=== PATIENT | male | born 1955 | race Caucasian/White ===

== ENCOUNTER 2019-07-01 06:00 | Outpatient (RCR) | payer OTHER, SELFPAY | END 2019-07-31 00:01 | LOC: PULRHB 06:00 | PROVIDERS: Family Provider Internal Medicine; Visit Provider Internal Medicine | DX: J44.9 Chronic obstructive pulmonary disease, unspecified (principal) | CPT/HCPCS: G0424 ×7 ==

== ENCOUNTER 2019-08-01 06:00 | Outpatient (RCR) | payer OTHER, SELFPAY | END 2019-08-31 23:59 | disposition home or self-care (01) | LOC: PULRHB 06:00 | PROVIDERS: Family Provider Internal Medicine; PCP Internal Medicine; Visit Provider Internal Medicine | DX: J44.9 Chronic obstructive pulmonary disease, unspecified (principal) | CPT/HCPCS: G0424 ==

== ENCOUNTER 2019-09-04 12:40 | Outpatient (RCR) | payer OTHER, SELFPAY | END 2019-09-29 23:59 | disposition home or self-care (01) | LOC: PULRHB 12:40 | PROVIDERS: Family Provider Internal Medicine; PCP Internal Medicine; Visit Provider Internal Medicine | DX: J44.9 Chronic obstructive pulmonary disease, unspecified (principal) | CPT/HCPCS: G0424 ==

== ENCOUNTER 2019-09-30 06:00 | Outpatient (RCR) | payer OTHER, SELFPAY | END 2019-10-30 23:59 | disposition home or self-care (01) | LOC: PULRHB 06:00 | PROVIDERS: Family Provider Internal Medicine; PCP Internal Medicine; Visit Provider Internal Medicine | DX: J44.9 Chronic obstructive pulmonary disease, unspecified (principal) | CPT/HCPCS: G0424 ==

== ENCOUNTER 2020-06-23 11:29 | Outpatient (CLI) | payer OTHER, SELFPAY ==
--- NOTE | 2020-06-23 11:43 | USCV_ITS ---
Merritt Lima Age: 64 Gender: M : 1955 Exam Date: 06/23/2020 11:56 Ordering Phys: Tova Ireland MD Technologist: Isabel Pride Exam Location: [facility] [place] Indication: Screening for AAA HISTORY: Diameter (cm) AP x Transverse x Length Velocity (cm/s) Waveform Prox Aorta: 2.11 x 2.72 x 56.90 Mid Aorta: 2.00 x 2.32 x 67.70 Distal Aorta: 1.49 x 1.92 x 32.70 Right Iliac Prox: 0.90 x 1.02 x 123.00 Left Iliac Prox: 1.02 x 0.99 x 79.30 Stent Prox Landing x x Aneurysmal Sac Max x x Lt Lat Sac Dim Rt Lat Sac Dim Stent Dist Landing x x Right Iliac Stent x x Left Iliac Stent x x Right Renal Art Left Renal Art FINDINGS: Comparison:. none Ectatic abdominal aorta with evidence of atherosclerotic plaque noted. No evidence of abdominal aortic aneurysm. There is no evidence of a right common iliac artery aneurysm. There is no evidence of a left common iliac artery aneurysm. CONCLUSIONS No evidence of abdominal aortic aneurysm. Mild atherosclerosis abdominal aorta. Dr. Thao Lima DO (Electronically Signed) Final Date: 23 June 2020 15:19 S
== END 2020-06-23 11:30 | disposition home or self-care (01) ==
PROVIDERS: PCP Family Medicine; Visit Provider Family Medicine
DX: I71.4 Abdominal aortic aneurysm, without rupture (principal); I70.0 Atherosclerosis of aorta
CPT/HCPCS: 76706

== ENCOUNTER 2021-04-04 15:13 | Emergency (ER) | payer OTHER, MEDICARE, SELFPAY ==
[2021-04-04 15:23] VITALS: PULSE 103; RESP 17; TEMP 36.6; O2SAT 95; BMI 27.3
[2021-04-04 15:52] VITALS: PULSE 100; RESP 17; O2SAT 95
--- NOTE | 2021-04-04 15:52 | XRR_ITS ---
PROCEDURE INFORMATION: Exam: XR Chest Exam date and time: 04/04/2021 3:52 PM Age: 65 years old Clinical indication: Pain; Chest pressure; Additional info: Chest pain TECHNIQUE: Imaging protocol: XR of the chest. Views: 1 view. COMPARISON: CR Chest 1 [place] [id number] 03/14/2019 7:14 AM FINDINGS: Lungs: There are minimal patchy opacities at the left lung base. Pleural spaces: Unremarkable. No pleural effusion. No pneumothorax. Heart/Mediastinum: Unremarkable. No cardiomegaly. Bones/joints: Unremarkable. XR/XR chest 1V portable [id number] IMPRESSION: Minimal patchy opacities at the left lung base are nonspecific. Differential includes atelectasis, scar tissue, and or pneumonia.
--- NOTE | 2021-04-04 15:52 | ECG_ITS ---
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1955 Requested By: Jayro Woo Order Number: [id number] Reading MD: CAMILLE LOUIS Measurements Intervals [place] Rate: 95 P: NM: QRS: -61 QRSD: 94 T: 50 QT: 358 QTc: 451 Interpretive Statements ATRIAL FIBRILLATION INCOMPLETE RIGHT BUNDLE BRANCH BLOCK [90+ ms QRS DURATION, TERMINAL R IN V1/V2, 40+ ms S IN I/aVL/V4/V5/V6] LEFT ANTERIOR FASCICULAR BLOCK [QRS AXIS <= -45, QR IN I, RS IN II] SEPTAL MYOCARDIAL INFARCTION , OF INDETERMINATE AGE [40+ ms Q WAVE IN V1/V2] Compared to ECG 03/14/2019 13:38:53 Incomplete right bundle-branch block now present Myocardial infarct finding still present Electronically Signed On 04-04-2021 20:13:41 CDT by CAMILLE LOUIS [id number]
--- NOTE | 2021-04-04 15:59 | XRR_ITS ---
PROCEDURE INFORMATION: Exam: XR Right Hand Exam date and time: 04/04/2021 3:59 PM Age: 65 years old Clinical indication: Injury or trauma; Other: Dog bite; Puncture; Hand; Right; Additional info: Pain TECHNIQUE: Imaging protocol: XR Right hand. Views: 3 or more views. COMPARISON: No relevant prior studies available. FINDINGS: Bones/joints: There is a fracture of unknown chronicity through the neck of the 5th metacarpal. There is some hazy opacity across the fracture site is may be subacute to chronic in nature. Multi-articular primary osteoarthritic changes including joint space narrowing, subchondral cystic/sclerotic changes, and marginal osteophyte formations. 1 mm hyperdensity overlies the dorsal aspect of the 5th digit distal phalanx. Soft tissues: Normal. XR/XR hand RT min 3V* [id number] IMPRESSION: There is a fracture of unknown chronicity through the neck of the 5th metacarpal. There is some hazy opacity across the fracture site is may be subacute to chronic in nature. Please correlate clinically.
--- NOTE | 2021-04-04 15:59 | XRR_ITS ---
PROCEDURE INFORMATION: Exam: XR Left Hand Exam date and time: 04/04/2021 3:59 PM Age: 65 years old Clinical indication: Injury or trauma; Other: Dog bite; Puncture; Hand; Left; Additional info: Pain dog bite TECHNIQUE: Imaging protocol: XR Left hand. Views: 3 or more views. COMPARISON: No relevant prior studies available. FINDINGS: Bones/joints: Multi-articular primary osteoarthritic changes including joint space narrowing, subchondral cystic/sclerotic changes, and small marginal osteophyte formations. These changes appear most prominent across the 5th distal interphalangeal joint. Soft tissues: There is edema in the soft tissues surrounding the 5th digit. XR/XR hand LT min 3V* [id number] IMPRESSION: There is edema in the soft tissues surrounding the 5th digit.
--- NOTE | 2021-04-04 16:20 | ED_ITS ---
Documented by User: Jayro Alvarado DO 04/11/21 08:59 HPI - Animal Bite General: Chief Complaint: Animal Bite Stated Complaint: lacerations/dog fight Time Seen by Provider: 04/04/21 15:49 History of Present Illness: HPI narrative: 65-year-old male presents to the emergency room after getting in the middle of a dog fight. He is on Eliquis. He got bit on the left fifth finger he has a scratch abrasions bilaterally on the knees and the left anterior tibia. He also has hematoma on the lateral portion of the right hand. Patient is on Eliquis for atrial fibrillation denies any other injuries. He is complaining of generalized aching all over is quite anxious. MD complaint: animal bite Onset (ago): minute(s) Animal: dog Description of animal: household pet Mechanism: bite Location - Extremities: Left: lower leg and Bilateral: hand Pain description: sharp Context: animals fighting Associated symptoms: Reports bleeding; Deny chills, cough, diaphoresis, erythema, fever(s), headache(s), numbness, rash, short of breath, syncope, weakness or wound drainage Review of Systems Const: Denies: fever(s), chills or diaphoresis ENMT: Denies: throat pain, ear or mastoid pain, nasal discharge or nasal congestion Card: Denies: syncope Resp: Denies: dyspnea, productive cough or non-productive cough GI: Denies: abdominal pain, nausea, vomiting, hematemesis, coffee ground emesis, diarrhea, constipation, bloating, hematochezia or melena : Denies: flank pain, dysuria, urinary frequency or urinary urgency Skin/Breast: Denies: rash or pruritus Neuro: Denies: headache(s) PFS ED PFSH: Medical History (Updated 04/04/21 @ 19:21 by Chava Knowles DO) Alcohol abuse Atrial fibrillation Diabetes Hyperlipidemia Hypertension Major depression PTSD (post-traumatic stress disorder) SOB (shortness of breath) Tobacco abuse Surgical History H/O neck surgery Family History Father Cancer Lung disease TB Suicide Mother Dementia Lung disease TB Family/Other Diabetes Grandmother Stroke Denies family history of CAD (coronary artery disease) Clotting disorder Chronic kidney disease (CKD) Anesthesia complication Bleeding disorder Social History Smoking and tobacco status: current every day smoker Alcohol intake: current Physical Exam Const: COMMON NORMALS: no acute distress GENERAL APPEARANCE: cooperative and comfortable ORIENTATION/CONSCIOUSNESS: Yes awake, Yes oriented to person, Yes oriented to place and Yes oriented to time HENMT: COMMON NORMALS: normocephalic, atraumatic and hearing grossly normal bilaterally HEAD & SCALP: normocephalic and atraumatic Neck/C-Spine: COMMON NORMALS: no JVD Resp: COMMON NORMALS: normal respiratory effort, No retractions, No use of accessory muscles and clear to auscultation bilaterally AUSCULTATION: clear to auscultation bilaterally Cardio: COMMON NORMALS: no JVD, regular rate, regular rhythm and No murmurs present (Cardio) RATE: regular rate RHYTHM: regular rhythm GI: COMMON NORMALS: Soft to palpation and No hepatosplenomegaly present AUSCULTATION: Yes normoactive bowel sounds PALPATION: Yes Soft to palpation, No Tenderness to palpation present (GI), No Guarding due to palpation present (GI) and Yes No hepatosplenomegaly present Extremity: NARRATIVE EXTREMITY EXAM: Skin tear in the left anterior tibia bilateral abrasions on the knees hematoma in the lateral aspect of the right hand laceration to the left fifth finger. Neuro: SENSORIUM/ORIENTATION: Yes oriented to person, Yes oriented to place and Yes oriented to time Skin: COMMON NORMALS: no rashes or lesions noted GENERAL SKIN EXAM: no rashes or lesions noted and no erythema Course Vital Signs: Vital signs: Vital Signs Temperature 98.2 F 04/04/21 20:45 Pulse Rate 78 04/04/21 20:45 Respiratory Rate 20 H 04/04/21 20:45 Blood Pressure 161/91 04/04/21 20:45 Pulse Oximetry 95 04/04/21 15:52 MDM - Animal Bite MDM Narrative: Medical decision making narrative: Care turned over to Dr. Knowles at change of shift please see his notes for final diagnosis and disposition. Lab Data: Labs: Lab Results 04/04/21 04/04/21 04/04/21 Range/Units 16:22 16:22 16:22 WBC 5.5 (4.0-10.0) 10^3/ uL RBC 4.56 (4.1-5.3) 10^6/u L Hgb 14.4 (11.7-16.6) g/dL Hct 42.0 (42.0-52.0) % MCV 92.1 (80-94) fl MCH 31.6 (28.0-34.0) pg MCHC 34.3 (30.0-36.0) g/dL RDW 12.5 (12.1-15.1) % Plt Count 212 (130-400) 10^3/c mm MPV 10.7 H (7.4-10.4) fL Neut % (Auto) 58.6 % Lymph % (Auto) 25.5 % [place] % (Auto) 12.7 % Eos % (Auto) 1.6 % Baso % (Auto) 1.4 % Neut # (Auto) 3.23 (1.8-7.7) 10^3/u L Lymph # (Auto) 1.4 (0.8-4.8) 10^3/u L [place] # (Auto) 0.7 (0.2-0.9) 10^3/u L Eos # (Auto) 0.1 (0.0-0.8) 10^3/u L Baso # (Auto) 0.1 (0.0-0.1) 10^3/u L Nucleated RBC % (a uto) 0 % Nucleated RBCs # 0.0 /100WBC Sodium 136 (136-145) mmol/L Potassium 3.8 (3.5-5.1) mmol/L Chloride 95 L (98-107) mmol/L Carbon Dioxide 18 L (22-29) mmol/L Anion Gap 26.8 H (5-19) BUN 7 L (8-23) mg/dL Creatinine 0.8 (0.7-1.2) mg/dL GFR Calculation 96.4 (90-130) mL/min Glucose 82 (65-115) mg/dL Calculated Osmolal ity 279 L (285-295) mOsm/k g Calcium 9.6 (8.5-10.5) mg/dL Total Bilirubin 0.3 (0.15-1.2) mg/dL AST 24 (0-40) U/L ALT 14 (0-41) U/L Alkaline Phosphata se 68 (40-130) IU/L Creatine Kinase 83 (39-308) U/L Troponin T Baselin e 10 (0-15) ng/L Troponin T 120 Min [place] (0-15) ng/L Delta Troponin T (0-10) ABS# Total Protein 7.2 (6.6-8.7) g/dL Albumin 4.7 (3.5-5.2) g/dL Globulin 2.5 (1.3-4.6) g/dL SARS-CoV-2 Ag (Rap id) (Negative) 04/04/21 04/04/21 Range/Units 18:32 18:34 WBC (4.0-10.0) 10^3/ uL RBC (4.1-5.3) 10^6/u L Hgb (11.7-16.6) g/dL Hct (42.0-52.0) % MCV (80-94) fl MCH (28.0-34.0) pg MCHC (30.0-36.0) g/dL RDW (12.1-15.1) % Plt Count (130-400) 10^3/c mm MPV (7.4-10.4) fL Neut % (Auto) % Lymph % (Auto) % [place] % (Auto) % Eos % (Auto) % Baso % (Auto) % Neut # (Auto) (1.8-7.7) 10^3/u L Lymph # (Auto) (0.8-4.8) 10^3/u L [place] # (Auto) (0.2-0.9) 10^3/u L Eos # (Auto) (0.0-0.8) 10^3/u L Baso # (Auto) (0.0-0.1) 10^3/u L Nucleated RBC % (a uto) % Nucleated RBCs # /100WBC Sodium (136-145) mmol/L Potassium (3.5-5.1) mmol/L Chloride (98-107) mmol/L Carbon Dioxide (22-29) mmol/L Anion Gap (5-19) BUN (8-23) mg/dL Creatinine (0.7-1.2) mg/dL GFR Calculation (90-130) mL/min Glucose (65-115) mg/dL Calculated Osmolal ity (285-295) mOsm/k g Calcium (8.5-10.5) mg/dL Total Bilirubin (0.15-1.2) mg/dL AST (0-40) U/L ALT (0-41) U/L Alkaline Phosphata se (40-130) IU/L Creatine Kinase (39-308) U/L Troponin T Baselin e (0-15) ng/L Troponin T 120 Min [place] 10.52 (0-15) ng/L Delta Troponin T 0.52 (0-10) ABS# Total Protein (6.6-8.7) g/dL Albumin (3.5-5.2) g/dL Globulin (1.3-4.6) g/dL SARS-CoV-2 Ag (Rap id) Negative (Negative) Discharge Plan Discharge Patient Disposition: Home Clinical Impression: Bite by animal Pneumonia Qualifiers: Pneumonia type: due to unspecified organism Laterality: left Lung location: lower lobe of lung Qualified Code(s): J18.9 - Pneumonia, unspecified organism Condition: Stable Prescriptions: New bacitracin 500 unit/gram ointment 1 applic topical BID Qty: 30 RF: 0 hydrocodone-acetaminophen 5-325 mg tablet 1 tab PO Q8H PRN (Reason: pain) Qty: 7 RF: 0 No Action Eliquis 5 mg tablet 5 mg PO BID RF: 0 thiamine HCl (vitamin B1) 100 mg tablet 100 mg PO DAILY RF: 0 pantoprazole 40 mg tablet,delayed release (DR/EC) 40 mg PO DAILY RF: 0 rosuvastatin 5 mg tablet 5 mg PO DAILY RF: 0 nitroglycerin [Nitrostat] 0.4 mg tablet, sublingual 0.4 mg SUBLINGUAL Q5M PRNRF: 0 metoprolol tartrate 50 mg tablet 50 mg PO BID RF: 0 cholecalciferol (vitamin D3) 10 mcg (400 unit) capsule 2,000 unit PO DAILY RF: 0 folic acid 1 mg tablet 1 mg PO BID RF: 0 All Day Allergy (cetirizine) 10 mg capsule 10 mg PO DAILY PRNRF: 0 Discharge Orders: Discharge ED (Routine); Ordered 04/04/21 Ordered By: Chava Knowles Referrals: Tova Ireland MD [Primary Care Provider] - 4-7 days (For wound checks, and pneumonia checkup) Discharge Diet: Advance as tolerated Discharge Activity: Increase activity as tolerated Patient Instructions: Animal Bite (ED), Pneumonia (ED), Opioid Safety Activity Restrictions/Additional Instructions: Return for worsening swelling, pain, redness, streaking, drainage from wounds. Return also for worsening chest discomfort despite treatment, shortness of breath, other concerning symptoms. Coding Level of Care Code ED Protection Engineer for Chg Fwd Exam Detailed Documented by User: Chava Knowles DO 04/05/21 01:06 HPI - Animal Bite General: Chief Complaint: Animal Bite Stated Complaint: lacerations/dog fight Time Seen by Provider: 04/04/21 15:49 PFSH ED PFSH: Medical History (Updated 04/04/21 @ 19:21 by Chava Knowles DO) Alcohol abuse Atrial fibrillation Diabetes Hyperlipidemia Hypertension Major depression PTSD (post-traumatic stress disorder) SOB (shortness of breath) Tobacco abuse Surgical History H/O neck surgery Family History Father Cancer Lung disease TB Suicide Mother Dementia Lung disease TB Family/Other Diabetes Grandmother Stroke Denies family history of CAD (coronary artery disease) Clotting disorder Chronic kidney disease (CKD) Anesthesia complication Bleeding disorder Social History Smoking and tobacco status: current every day smoker Alcohol intake: current Course Vital Signs: Vital signs: Vital Signs Temperature 98.2 F 04/04/21 20:45 Pulse Rate 78 04/04/21 20:45 Respiratory Rate 20 H 04/04/21 20:45 Blood Pressure 161/91 04/04/21 20:45 Pulse Oximetry 95 04/04/21 15:52 MDM - Animal Bite MDM Narrative: Medical decision making narrative: 65-year-old gentleman checked out to me at shift change by Dr. Alvarado. Staff has several scratches and abrasions related to the dog fight. These are known animals to the patient with updated shots. No rabies prophylaxis is warranted. He has received cefazolin, and a tetanus shot. Patient's also been coughing and having some chest discomfort. His EKG was not remarkable. Chest x-ray shows some infiltrate or atelectasis in the left base. His Covid rapid test is negative. He has no change in his delta troponin. He will be treated as an outpatient for pneumonia. We will cover him with doxycycline, as it would be good coverage for his bite wounds as well. Lab Data: Labs: Lab Results 04/04/21 04/04/21 04/04/21 Range/Units 16:22 16:22 16:22 WBC 5.5 (4.0-10.0) 10^3/ uL RBC 4.56 (4.1-5.3) 10^6/u L Hgb 14.4 (11.7-16.6) g/dL Hct 42.0 (42.0-52.0) % MCV 92.1 (80-94) fl MCH 31.6 (28.0-34.0) pg MCHC 34.3 (30.0-36.0) g/dL RDW 12.5 (12.1-15.1) % Plt Count 212 (130-400) 10^3/c mm MPV 10.7 H (7.4-10.4) fL Neut % (Auto) 58.6 % Lymph % (Auto) 25.5 % [place] % (Auto) 12.7 % Eos % (Auto) 1.6 % Baso % (Auto) 1.4 % Neut # (Auto) 3.23 (1.8-7.7) 10^3/u L Lymph # (Auto) 1.4 (0.8-4.8) 10^3/u L [place] # (Auto) 0.7 (0.2-0.9) 10^3/u L Eos # (Auto) 0.1 (0.0-0.8) 10^3/u L Baso # (Auto) 0.1 (0.0-0.1) 10^3/u L Nucleated RBC % (a uto) 0 % Nucleated RBCs # 0.0 /100WBC Sodium 136 (136-145) mmol/L Potassium 3.8 (3.5-5.1) mmol/L Chloride 95 L (98-107) mmol/L Carbon Dioxide 18 L (22-29) mmol/L Anion Gap 26.8 H (5-19) BUN 7 L (8-23) mg/dL Creatinine 0.8 (0.7-1.2) mg/dL GFR Calculation 96.4 (90-130) mL/min Glucose 82 (65-115) mg/dL Calculated Osmolal ity 279 L (285-295) mOsm/k g Calcium 9.6 (8.5-10.5) mg/dL Total Bilirubin 0.3 (0.15-1.2) mg/dL AST 24 (0-40) U/L ALT 14 (0-41) U/L Alkaline Phosphata se 68 (40-130) IU/L Creatine Kinase 83 (39-308) U/L Troponin T Baselin e 10 (0-15) ng/L Troponin T 120 Min [place] (0-15) ng/L Delta Troponin T (0-10) ABS# Total Protein 7.2 (6.6-8.7) g/dL Albumin 4.7 (3.5-5.2) g/dL Globulin 2.5 (1.3-4.6) g/dL SARS-CoV-2 Ag (Rap id) (Negative) 04/04/21 04/04/21 Range/Units 18:32 18:34 WBC (4.0-10.0) 10^3/ uL RBC (4.1-5.3) 10^6/u L Hgb (11.7-16.6) g/dL Hct (42.0-52.0) % MCV (80-94) fl MCH (28.0-34.0) pg MCHC (30.0-36.0) g/dL RDW (12.1-15.1) % Plt Count (130-400) 10^3/c mm MPV (7.4-10.4) fL Neut % (Auto) % Lymph % (Auto) % [place] % (Auto) % Eos % (Auto) % Baso % (Auto) % Neut # (Auto) (1.8-7.7) 10^3/u L Lymph # (Auto) (0.8-4.8) 10^3/u L [place] # (Auto) (0.2-0.9) 10^3/u L Eos # (Auto) (0.0-0.8) 10^3/u L Baso # (Auto) (0.0-0.1) 10^3/u L Nucleated RBC % (a uto) % Nucleated RBCs # /100WBC Sodium (136-145) mmol/L Potassium (3.5-5.1) mmol/L Chloride (98-107) mmol/L Carbon Dioxide (22-29) mmol/L Anion Gap (5-19) BUN (8-23) mg/dL Creatinine (0.7-1.2) mg/dL GFR Calculation (90-130) mL/min Glucose (65-115) mg/dL Calculated Osmolal ity (285-295) mOsm/k g Calcium (8.5-10.5) mg/dL Total Bilirubin (0.15-1.2) mg/dL AST (0-40) U/L ALT (0-41) U/L Alkaline Phosphata se (40-130) IU/L Creatine Kinase (39-308) U/L Troponin T Baselin e (0-15) ng/L Troponin T 120 Min [place] 10.52 (0-15) ng/L Delta Troponin T 0.52 (0-10) ABS# Total Protein (6.6-8.7) g/dL Albumin (3.5-5.2) g/dL Globulin (1.3-4.6) g/dL SARS-CoV-2 Ag (Rap id) Negative (Negative) Discharge Plan Discharge Patient Disposition: Home Clinical Impression: Bite by animal Pneumonia Qualifiers: Pneumonia type: due to unspecified organism Laterality: left Lung location: lower lobe of lung Qualified Code(s): J18.9 - Pneumonia, unspecified organism Condition: Stable Prescriptions: New bacitracin 500 unit/gram ointment 1 applic topical BID Qty: 30 RF: 0 hydrocodone-acetaminophen 5-325 mg tablet 1 tab PO Q8H PRN (Reason: pain) Qty: 7 RF: 0 No Action Eliquis 5 mg tablet 5 mg PO BID RF: 0 thiamine HCl (vitamin B1) 100 mg tablet 100 mg PO DAILY RF: 0 pantoprazole 40 mg tablet,delayed release (DR/EC) 40 mg PO DAILY RF: 0 rosuvastatin 5 mg tablet 5 mg PO DAILY RF: 0 nitroglycerin [Nitrostat] 0.4 mg tablet, sublingual 0.4 mg SUBLINGUAL Q5M PRNRF: 0 metoprolol tartrate 50 mg tablet 50 mg PO BID RF: 0 cholecalciferol (vitamin D3) 10 mcg (400 unit) capsule 2,000 unit PO DAILY RF: 0 folic acid 1 mg tablet 1 mg PO BID RF: 0 All Day Allergy (cetirizine) 10 mg capsule 10 mg PO DAILY PRNRF: 0 Discharge Orders: Discharge ED (Routine); Ordered 04/04/21 Ordered By: Chava Knowles Referrals: Tova Ireland MD [Primary Care Provider] - 4-7 days (For wound checks, and pneumonia checkup) Discharge Diet: Advance as tolerated Discharge Activity: Increase activity as tolerated Patient Instructions: Animal Bite (ED), Pneumonia (ED), Opioid Safety Activity Restrictions/Additional Instructions: Return for worsening swelling, pain, redness, streaking, drainage from wounds. Return also for worsening chest discomfort despite treatment, shortness of breath, other concerning symptoms. Coding Level of Care Code ED Protection Engineer for Ben Fwd Exam Detailed
[2021-04-04] MEDS: ceFAZolin 1,000 mg SDV 1000 MG IVP (16:45)
[2021-04-04] MEDS: tetanus-dipt-pertussis 0.5 mL SDV IM (16:45)
[2021-04-04] MEDS: water for injection-sterile 10 ML 5 ML (16:45)
[2021-04-04 16:47] LABS: Basophils # 0.1 10^3/uL (0.0-0.1); Basophils % 1.4 %; Eosinophils # 0.1 10^3/uL (0.0-0.8); Eosinophils % 1.6 %; Hemoglobin 14.4 g/dL (11.7-16.6); Lymphocytes # 1.4 10^3/uL (0.8-4.8); Lymphocytes % 25.5 %; Mean Corpuscular HGB Conc 34.3 g/dL (30.0-36.0); Mean Corpuscular Hemoglobin 31.6 pg (28.0-34.0); Mean Corpuscular Volume 92.1 fl (80-94); Mean Platelet Volume 10.7 fL (7.4-10.4); Monocytes # 0.7 10^3/uL (0.2-0.9); Monocytes % 12.7 %; Neutrophils # 3.23 10^3/uL (1.8-7.7); Neutrophils % 58.6 %; Nucleated Red Blood Cells % 0 %; Platelet Count 212 10^3/cmm (130-400); Red Blood Count 4.56 10^6/uL (4.1-5.3); Red Cell Distribution Width 12.5 % (12.1-15.1); White Blood Count 5.5 10^3/uL (4.0-10.0)
[2021-04-04 17:02] LABS: Troponin(5th) Baseline 10 ng/L (0-15)
[2021-04-04 17:05] LABS: Alanine Aminotransferase 14 U/L (0-41); Albumin Level 4.7 g/dL (3.5-5.2); Alkaline Phosphatase 68 IU/L (40-130); Anion Gap 26.8 (5-19); Aspartate Amino Transferase 24 U/L (0-40); Blood Urea Nitrogen 7 mg/dL (8-23); Calcium 9.6 mg/dL (8.5-10.5); Carbon Dioxide 18 mmol/L (22-29); Chloride 95 mmol/L (98-107); Creatine Phosphokinase 83 U/L (39-308); Globulin 2.5 g/dL (1.3-4.6); Glomerular Filtration Rate 96.4 mL/min (90-130); Glucose 82 mg/dL (65-115); Osmolality Calculated 279 mOsm/kg (285-295); Potassium 3.8 mmol/L (3.5-5.1); Sodium 136 mmol/L (136-145); Total Bilirubin 0.3 mg/dL (0.15-1.2); Total Protein 7.2 g/dL (6.6-8.7)
--- NOTE | 2021-04-04 17:52 | ECG_ITS ---
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1955 Requested By: Jayro Woo Order Number: [id number] Reading MD: CAMILLE LOUIS Measurements Intervals Protection Rate: 91 P: TN: QRS: -62 QRSD: 94 T: 48 QT: 338 QTc: 416 Interpretive Statements ATRIAL FIBRILLATION INCOMPLETE RIGHT BUNDLE BRANCH BLOCK [90+ ms QRS DURATION, TERMINAL R IN V1/V2, 40+ ms S IN I/aVL/V4/V5/V6] LEFT ANTERIOR FASCICULAR BLOCK [QRS AXIS <= -45, QR IN I, RS IN II] ANTERIOR MYOCARDIAL INFARCTION , OF INDETERMINATE AGE [40+ ms Q WAVE AND/OR ST/T ABNORMALITY IN V3/V4] Compared to ECG 04/04/2021 16:19:56 No significant changes Electronically Signed On 04-04-2021 20:17:10 CDT by CAMILLE LOUIS [id number]
[2021-04-04 18:57] LABS: Troponin 5 2HR 10.52 ng/L (0-15); Troponin 5 2HR Delta 0.52 ABS# (0-10)
[2021-04-04 19:10] LABS: SARS Covid-2 Antigen Negative (Negative)
[2021-04-04] MEDS: ondansetron 2 mg/ML SDV 2 mL 4 MG IVP (20:14)
[2021-04-04] MEDS: mupirocin oint 22 gm 1 APPLIC TOPICAL (20:15)
[2021-04-04] MEDS: fentaNYL 50 mcg/mL INJ 2mL 100 MCG IVP (20:15)
[2021-04-04] MEDS: sodium chloride 0.9% 1,000 ML 999 ML IV (20:15)
[2021-04-04 20:45] VITALS: BP 161/91; PULSE 78; RESP 20; TEMP 36.8
== END 2021-04-04 20:46 | disposition home or self-care (01) ==
PROVIDERS: Family Medicine; Emergency Provider Emergency Medicine; PCP Family Medicine
DX: J18.9 Pneumonia, unspecified organism (principal); S61.257A Open bite of left little finger without damage to nail, initial encounter; W54.0XXA Bitten by dog, initial encounter; Z79.01 Long term (current) use of anticoagulants; E11.9 Type 2 diabetes mellitus without complications; E78.5 Hyperlipidemia, unspecified; I10 Essential (primary) hypertension; F17.210 Nicotine dependence, cigarettes, uncomplicated; Z23 Encounter for immunization; Z20.822 Contact with and (suspected) exposure to COVID-19
CPT/HCPCS: 71045; 73130; 80053; 82550; 84484; 85025; 87426; 90715; 93005; 96361; 96374; 96375; 99284; J0690; J2405; J3010; J7030

== ENCOUNTER 2021-08-04 17:09 | Emergency (ER) | payer OTHER, MEDICARE, SELFPAY ==
[2021-08-04 17:17] VITALS: BP 129/65; PULSE 151; RESP 20; TEMP 36.8; O2SAT 100
--- NOTE | 2021-08-04 17:33 | W.ED.PSYCHS ---
Documented by User: Jayro Alvarado DO 08/08/21 08:01 HPI - Psych General: Chief Complaint: Psychiatric Symptoms Stated Complaint: METH, ETOH, SI Time Seen by Provider: 08/04/21 17:17 History of Present Illness: HPI Narrative: 65-year-old male presents emergency room via EMS with the attendance of the [place] [employer] officer. Patient is obviously obnoxiously intoxicated repeatedly stating he wants to kill himself. States his dad kill himself and he wants to kill himself as well. Relates it to his time in [place]. I cannot really get him to explain anything else that happened that resulted in him presenting to the emergency room. He did tell the nursing staff had been drinking heavily for the last several days he also has been using methamphetamines and marijuana. He mentions he has been admitted to the Neuropsych Unit in the past. MD complaint: suicidal ideation Onset (ago): unknown Duration: constant History of same: Yes Relieving factors: none Exacerbating factors: alcohol and drug use Context: recent alcohol abuse and recent drug abuse Associated psychiatric symptoms: depression and suicidal ideation Associated symptoms: Reports suicidal ideation; Deny auditory hallucinations, visual hallucinations, delusions, depression, homicidal ideation or racing thoughts Treatments prior to arrival: none If self harm: admits thoughts of self harm Review of Systems General: Reports: ROS unobtainable due to mental status Psych: Reports: suicidal ideation; Denies: depression, visual hallucinations, auditory hallucinations or homicidal ideation [facility] ED PFSH: Medical History Alcohol abuse Atrial fibrillation Diabetes Hyperlipidemia Hypertension Major depression PTSD (post-traumatic stress disorder) SOB (shortness of breath) Tobacco abuse Surgical History H/O neck surgery Family History Father Cancer Lung disease TB Suicide Mother Dementia Lung disease TB Family/Other Diabetes Grandmother Stroke Denies family history of CAD (coronary artery disease) Clotting disorder Chronic kidney disease (CKD) Anesthesia complication Bleeding disorder Social History Smoking and tobacco status: current every day smoker Alcohol intake: current Physical Exam Const: ORIENTATION/CONSCIOUSNESS: Yes awake HENMT: COMMON NORMALS: normocephalic, atraumatic and hearing grossly normal bilaterally HEAD & SCALP: normocephalic and atraumatic Neck/C-Spine: COMMON NORMALS: no JVD Resp: COMMON NORMALS: normal respiratory effort, No retractions, No use of accessory muscles and clear to auscultation bilaterally AUSCULTATION: clear to auscultation bilaterally Cardio: COMMON NORMALS: no JVD, regular rate, regular rhythm and No murmurs present (Cardio) RATE: regular rate RHYTHM: regular rhythm GI: COMMON NORMALS: Soft to palpation and No hepatosplenomegaly present AUSCULTATION: Yes normoactive bowel sounds PALPATION: Yes Soft to palpation, No Tenderness to palpation present (GI), No Guarding due to palpation present (GI) and Yes No hepatosplenomegaly present Extremity: COMMON NORMALS: normal to inspection, capillary refill normal, no clubbing, cyanosis or edema, no calf tenderness and no pedal edema Psych: THOUGHT CONTENT: No delusions Skin: COMMON NORMALS: no rashes or lesions noted GENERAL SKIN EXAM: no rashes or lesions noted Course Vital Signs: Vital signs: Vital Signs Temperature 98.2 F 08/05/21 06:50 Pulse Rate 87 08/05/21 06:50 Respiratory Rate 18 08/05/21 06:50 Blood Pressure 157/96 08/05/21 06:50 Pulse Oximetry 94 08/05/21 06:50 MDM - Psych MDM Narrative: Medical decision making narrative: Care turned over to Dr. Crews at change of shift see his notes for final diagnosis and disposition. Lab Data: Labs: Lab Results 08/04/21 08/04/21 08/04/21 17:30 17:30 17:30 WBC 5.5 10^3/uL 10^3/ uL (4.0-10.0) RBC 4.90 10^6/uL 10^6 /uL (4.1-5.3) Hgb 15.2 g/dL g/dL (11.7-16.6) Hct 44.4 % % (42.0-52.0) MCV 90.6 fl fl (80-94) MCH 31.0 pg pg (28.0-34.0) MCHC 34.2 g/dL g/dL (30.0-36.0) RDW 12.7 % % (12.1-15.1) Plt Count 179 10^3/cmm 10^3 /cmm (130-400) MPV 10.3 fL fL (7.4-10.4) Neut % (Auto) 42.7 % % Lymph % (Auto) 45.6 % % [place] % (Auto) 9.6 % % Eos % (Auto) 0.5 % % Baso % (Auto) 1.4 % % Neut # (Auto) 2.36 10^3/uL 10^3 /uL (1.8-7.7) Lymph # (Auto) 2.5 10^3/uL 10^3/ uL (0.8-4.8) [place] # (Auto) 0.5 10^3/uL 10^3/ uL (0.2-0.9) Eos # (Auto) 0.0 10^3/uL 10^3/ uL (0.0-0.8) Baso # (Auto) 0.1 10^3/uL 10^3/ uL (0.0-0.1) Nucleated RBC % (a uto) 0 % % Nucleated RBCs # 0.0 /100WBC /100W BC Sodium 137 mmol/L mmol/L (136-145) Potassium 4.0 mmol/L mmol/L (3.5-5.1) Chloride 96 mmol/L L mmol/ L (98-107) Carbon Dioxide 17 mmol/L L mmol/ L (22-29) Anion Gap 28.0 H (5-19) BUN 11 mg/dL mg/dL (8-23) Creatinine 0.7 mg/dL mg/dL (0.7-1.2) GFR Calculation 112.5 mL/min mL/m in (90-130) Glucose 94 mg/dL mg/dL (65-115) Calculated Osmolal ity 283 mOsm/kg L mOs m/kg (285-295) Calcium 8.4 mg/dL L mg/dL (8.5-10.5) Total Bilirubin 0.7 mg/dL mg/dL (0.15-1.2) AST 40 U/L U/L (0-40) ALT 16 U/L U/L (0-41) Alkaline Phosphata se 92 IU/L IU/L (40-130) Total Protein 6.7 g/dL g/dL (6.6-8.7) Albumin 4.0 g/dL g/dL (3.5-5.2) Globulin 2.7 g/dL g/dL (1.3-4.6) TSH 2.99 uIU/mL uIU/m L (0.27-4.20) Urine Color Urine Appearance Urine pH Ur Specific Gravit y Urine Protein Urine Glucose (UA) Urine Ketones Urine Blood Urine Nitrate Urine Bilirubin Urine Urobilinogen Ur Leukocyte Jenna ase Urine RBC Urine WBC Ur Squamous Epith Cells Amorphous Sediment Urine Bacteria Salicylates < 0.3 mg/dL L mg/ dL (3-10) Urine Opiates Scre en Acetaminophen < 5.0 ug/mL L ug/ mL (10-30) Ur Barbiturates Sc reen Ur Phencyclidine S crn Ur Amphetamines Sc reen U Benzodiazepines Scrn Urine Cocaine Scre en U Marijuana (THC) Screen Ethyl Alcohol 404 mg/dL H* mg/d L (0-10) Coronavirus 229E ( PCR) SARS-CoV-2 (PCR) 08/04/21 08/04/21 08/04/21 21:18 21:18 23:37 WBC RBC Hgb Hct MCV MCH MCHC RDW Plt Count MPV Neut % (Auto) Lymph % (Auto) [place] % (Auto) Eos % (Auto) Baso % (Auto) Neut # (Auto) Lymph # (Auto) [place] # (Auto) Eos # (Auto) Baso # (Auto) Nucleated RBC % (a uto) Nucleated RBCs # Sodium Potassium Chloride Carbon Dioxide Anion Gap BUN Creatinine GFR Calculation Glucose Calculated Osmolal ity Calcium Total Bilirubin AST ALT Alkaline Phosphata se Total Protein Albumin Globulin TSH Urine Color Yellow (Yellow) Urine Appearance Clear (CLEAR) Urine pH 5 (5-7) Ur Specific Gravit y 1.015 (1.005-1.030) Urine Protein Neg (Negative) Urine Glucose (UA) Norm (Normal) Urine Ketones Negative (Negative) Urine Blood Trace H (Negative) Urine Nitrate Negative (Negative) Urine Bilirubin Neg (Negative) Urine Urobilinogen Norm mg/dL mg/dL (Negative) Ur Leukocyte Jenna ase Negative (Negative) Urine RBC 0-4 /hpf H /hpf (0-2) Urine WBC 0-4 /hpf H /hpf (0-5) Ur Squamous Epith Cells 0-4 /hpf H /hpf (0-5) Amorphous Sediment Not Reportable Urine Bacteria Trace /hpf /hpf (NONE) Salicylates Urine Opiates Scre en Negative ng/mL ng /mL (Negative) Acetaminophen Ur Barbiturates Sc reen Negative ng/mL ng /mL (Negative) Ur Phencyclidine S crn Negative ng/mL ng /mL (Negative) Ur Amphetamines Sc reen Negative ng/mL ng /mL (Negative) U Benzodiazepines Scrn Negative ng/mL ng /mL (Negative) Urine Cocaine Scre en Negative ng/mL ng /mL (Negative) U Marijuana (THC) Screen Positive ng/mL H ng/mL (Negative) Ethyl Alcohol Coronavirus 229E ( PCR) Not detected (NOT DETECT) SARS-CoV-2 (PCR) Not detected (NOT DETECT) 08/05/21 10:36 WBC RBC Hgb Hct MCV MCH MCHC RDW Plt Count MPV Neut % (Auto) Lymph % (Auto) [place] % (Auto) Eos % (Auto) Baso % (Auto) Neut # (Auto) Lymph # (Auto) [place] # (Auto) Eos # (Auto) Baso # (Auto) Nucleated RBC % (a uto) Nucleated RBCs # Sodium Potassium Chloride Carbon Dioxide Anion Gap BUN Creatinine GFR Calculation Glucose Calculated Osmolal ity Calcium Total Bilirubin AST ALT Alkaline Phosphata se Total Protein Albumin Globulin TSH Urine Color Urine Appearance Urine pH Ur Specific Gravit y Urine Protein Urine Glucose (UA) Urine Ketones Urine Blood Urine Nitrate Urine Bilirubin Urine Urobilinogen Ur Leukocyte Jenna ase Urine RBC Urine WBC Ur Squamous Epith Cells Amorphous Sediment Urine Bacteria Salicylates Urine Opiates Scre en Acetaminophen Ur Barbiturates Sc reen Ur Phencyclidine S crn Ur Amphetamines Sc reen U Benzodiazepines Scrn Urine Cocaine Scre en U Marijuana (THC) Screen Ethyl Alcohol < 10 mg/dL mg/dL (0-10) Coronavirus 229E ( PCR) SARS-CoV-2 (PCR) Discharge Plan Discharge Patient Disposition: Home Clinical Impression: Alcohol intoxication, Suicidal ideation Condition: Stable Prescriptions: No Action Eliquis 5 mg tablet 5 mg PO BID RF: 0 thiamine HCl (vitamin B1) 100 mg tablet 100 mg PO DAILY RF: 0 pantoprazole 40 mg tablet,delayed release (DR/EC) 40 mg PO DAILY RF: 0 rosuvastatin 5 mg tablet 5 mg PO DAILY RF: 0 nitroglycerin [Nitrostat] 0.4 mg tablet, sublingual 0.4 mg SUBLINGUAL Q5M PRN (Reason: Chest Pain) RF: 0 metoprolol tartrate 50 mg tablet 50 mg PO BID RF: 0 folic acid 1 mg tablet 2 mg PO DAILY RF: 0 All Day Allergy (cetirizine) 10 mg capsule 10 mg PO DAILY RF: 0 cyanocobalamin (vitamin B-12) 1,000 mcg/mL Solution 1,000 mcg IM Q30D RF: 0 Vitamin D3 50 mcg (2,000 unit) Tablet 100 mcg PO DAILY RF: 0 Discharge Orders: Discharge ED (Routine); Ordered 08/05/21 Ordered By: Nelson Menjivar Referrals: Tova Ireland MD [Primary Care Provider] - 1-3 days Patient Instructions: Abuse of Alcohol (ED), Suicide Prevention (ED), Opioid Safety Sign Out Sign Out Data: Patient Sign Out occurred on 08/04/21 at 18:24. Patient's care was discussed, and care was transferred from to Arley Baldwin MD. Patient Sign Out occurred on 08/05/21 at 06:35. Patient's care was discussed, and care was transferred from to Nelson Menjivar MD. Coding Level of Care Code ED Corporate Planner for Chg Fwd Exam Comprehensive Documented by User: Nelson Menjivar MD 08/05/21 12:00 HPI - Psych General: Chief Complaint: Psychiatric Symptoms Stated Complaint: METH, ETOH, SI Time Seen by Provider: 08/04/21 17:17 [facility] ED PFSH: Medical History Alcohol abuse Atrial fibrillation Diabetes Hyperlipidemia Hypertension Major depression PTSD (post-traumatic stress disorder) SOB (shortness of breath) Tobacco abuse Surgical History H/O neck surgery Family History Father Cancer Lung disease TB Suicide Mother Dementia Lung disease TB Family/Other Diabetes Grandmother Stroke Denies family history of CAD (coronary artery disease) Clotting disorder Chronic kidney disease (CKD) Anesthesia complication Bleeding disorder Social History Smoking and tobacco status: current every day smoker Alcohol intake: current Course Vital Signs: Vital signs: Vital Signs Temperature 98.2 F 08/05/21 06:50 Pulse Rate 87 08/05/21 06:50 Respiratory Rate 18 08/05/21 06:50 Blood Pressure 157/96 08/05/21 06:50 Pulse Oximetry 94 08/05/21 06:50 MDM - Psych MDM Narrative: Medical decision making narrative: 65-year-old male presents with alcohol intoxication suicidal ideation. Initially he is very intoxicated. This patient was signed out to me by Dr. Baldwin. He was observed in the emergency department for sobriety. Remainder of lab work unremarkable. Upon sobriety he was evaluated by Dr. Dillard with psychiatry and at this time patient does not endorse any suicidal ideation and states that he was just drunk he was cleared by psychiatry and this time I agreed that he would not pose danger to himself or others. At this time I believe patient would be safe for discharge and outpatient follow-up. Return precautions provided. Plan was reviewed with the patient who expressed understanding. Questions answered. Patient will follow up with PCP. Patient discharged in stable condition. Lab Data: Labs: Lab Results 08/04/21 08/04/21 08/04/21 17:30 17:30 17:30 WBC 5.5 10^3/uL 10^3/ uL (4.0-10.0) RBC 4.90 10^6/uL 10^6 /uL (4.1-5.3) Hgb 15.2 g/dL g/dL (11.7-16.6) Hct 44.4 % % (42.0-52.0) MCV 90.6 fl fl (80-94) MCH 31.0 pg pg (28.0-34.0) MCHC 34.2 g/dL g/dL (30.0-36.0) RDW 12.7 % % (12.1-15.1) Plt Count 179 10^3/cmm 10^3 /cmm (130-400) MPV 10.3 fL fL (7.4-10.4) Neut % (Auto) 42.7 % % Lymph % (Auto) 45.6 % % [place] % (Auto) 9.6 % % Eos % (Auto) 0.5 % % Baso % (Auto) 1.4 % % Neut # (Auto) 2.36 10^3/uL 10^3 /uL (1.8-7.7) Lymph # (Auto) 2.5 10^3/uL 10^3/ uL (0.8-4.8) [place] # (Auto) 0.5 10^3/uL 10^3/ uL (0.2-0.9) Eos # (Auto) 0.0 10^3/uL 10^3/ uL (0.0-0.8) Baso # (Auto) 0.1 10^3/uL 10^3/ uL (0.0-0.1) Nucleated RBC % (a uto) 0 % % Nucleated RBCs # 0.0 /100WBC /100W BC Sodium 137 mmol/L mmol/L (136-145) Potassium 4.0 mmol/L mmol/L (3.5-5.1) Chloride 96 mmol/L L mmol/ L (98-107) Carbon Dioxide 17 mmol/L L mmol/ L (22-29) Anion Gap 28.0 H (5-19) BUN 11 mg/dL mg/dL (8-23) Creatinine 0.7 mg/dL mg/dL (0.7-1.2) GFR Calculation 112.5 mL/min mL/m in (90-130) Glucose 94 mg/dL mg/dL (65-115) Calculated Osmolal ity 283 mOsm/kg L mOs m/kg (285-295) Calcium 8.4 mg/dL L mg/dL (8.5-10.5) Total Bilirubin 0.7 mg/dL mg/dL (0.15-1.2) AST 40 U/L U/L (0-40) ALT 16 U/L U/L (0-41) Alkaline Phosphata se 92 IU/L IU/L (40-130) Total Protein 6.7 g/dL g/dL (6.6-8.7) Albumin 4.0 g/dL g/dL (3.5-5.2) Globulin 2.7 g/dL g/dL (1.3-4.6) TSH 2.99 uIU/mL uIU/m L (0.27-4.20) Urine Color Urine Appearance Urine pH Ur Specific Gravit y Urine Protein Urine Glucose (UA) Urine Ketones Urine Blood Urine Nitrate Urine Bilirubin Urine Urobilinogen Ur Leukocyte Jenna ase Urine RBC Urine WBC Ur Squamous Epith Cells Amorphous Sediment Urine Bacteria Salicylates < 0.3 mg/dL L mg/ dL (3-10) Urine Opiates Scre en Acetaminophen < 5.0 ug/mL L ug/ mL (10-30) Ur Barbiturates Sc reen Ur Phencyclidine S crn Ur Amphetamines Sc reen U Benzodiazepines Scrn Urine Cocaine Scre en U Marijuana (THC) Screen Ethyl Alcohol 404 mg/dL H* mg/d L (0-10) Coronavirus 229E ( PCR) SARS-CoV-2 (PCR) 08/04/21 08/04/21 08/04/21 21:18 21:18 23:37 WBC RBC Hgb Hct MCV MCH MCHC RDW Plt Count MPV Neut % (Auto) Lymph % (Auto) [place] % (Auto) Eos % (Auto) Baso % (Auto) Neut # (Auto) Lymph # (Auto) [place] # (Auto) Eos # (Auto) Baso # (Auto) Nucleated RBC % (a uto) Nucleated RBCs # Sodium Potassium Chloride Carbon Dioxide Anion Gap BUN Creatinine GFR Calculation Glucose Calculated Osmolal ity Calcium Total Bilirubin AST ALT Alkaline Phosphata se Total Protein Albumin Globulin TSH Urine Color Yellow (Yellow) Urine Appearance Clear (CLEAR) Urine pH 5 (5-7) Ur Specific Gravit y 1.015 (1.005-1.030) Urine Protein Neg (Negative) Urine Glucose (UA) Norm (Normal) Urine Ketones Negative (Negative) Urine Blood Trace H (Negative) Urine Nitrate Negative (Negative) Urine Bilirubin Neg (Negative) Urine Urobilinogen Norm mg/dL mg/dL (Negative) Ur Leukocyte Jenna ase Negative (Negative) Urine RBC 0-4 /hpf H /hpf (0-2) Urine WBC 0-4 /hpf H /hpf (0-5) Ur Squamous Epith Cells 0-4 /hpf H /hpf (0-5) Amorphous Sediment Not Reportable Urine Bacteria Trace /hpf /hpf (NONE) Salicylates Urine Opiates Scre en Negative ng/mL ng /mL (Negative) Acetaminophen Ur Barbiturates Sc reen Negative ng/mL ng /mL (Negative) Ur Phencyclidine S crn Negative ng/mL ng /mL (Negative) Ur Amphetamines Sc reen Negative ng/mL ng /mL (Negative) U Benzodiazepines Scrn Negative ng/mL ng /mL (Negative) Urine Cocaine Scre en Negative ng/mL ng /mL (Negative) U Marijuana (THC) Screen Positive ng/mL H ng/mL (Negative) Ethyl Alcohol Coronavirus 229E ( PCR) Not detected (NOT DETECT) SARS-CoV-2 (PCR) Not detected (NOT DETECT) 08/05/21 10:36 WBC RBC Hgb Hct MCV MCH MCHC RDW Plt Count MPV Neut % (Auto) Lymph % (Auto) [place] % (Auto) Eos % (Auto) Baso % (Auto) Neut # (Auto) Lymph # (Auto) [place] # (Auto) Eos # (Auto) Baso # (Auto) Nucleated RBC % (a uto) Nucleated RBCs # Sodium Potassium Chloride Carbon Dioxide Anion Gap BUN Creatinine GFR Calculation Glucose Calculated Osmolal ity Calcium Total Bilirubin AST ALT Alkaline Phosphata se Total Protein Albumin Globulin TSH Urine Color Urine Appearance Urine pH Ur Specific Gravit y Urine Protein Urine Glucose (UA) Urine Ketones Urine Blood Urine Nitrate Urine Bilirubin Urine Urobilinogen Ur Leukocyte Jenna ase Urine RBC Urine WBC Ur Squamous Epith Cells Amorphous Sediment Urine Bacteria Salicylates Urine Opiates Scre en Acetaminophen Ur Barbiturates Sc reen Ur Phencyclidine S crn Ur Amphetamines Sc reen U Benzodiazepines Scrn Urine Cocaine Scre en U Marijuana (THC) Screen Ethyl Alcohol < 10 mg/dL mg/dL (0-10) Coronavirus 229E ( PCR) SARS-CoV-2 (PCR) Discharge Plan Discharge Patient Disposition: Home Clinical Impression: Alcohol intoxication, Suicidal ideation Condition: Stable Prescriptions: No Action Eliquis 5 mg tablet 5 mg PO BID RF: 0 thiamine HCl (vitamin B1) 100 mg tablet 100 mg PO DAILY RF: 0 pantoprazole 40 mg tablet,delayed release (DR/EC) 40 mg PO DAILY RF: 0 rosuvastatin 5 mg tablet 5 mg PO DAILY RF: 0 nitroglycerin [Nitrostat] 0.4 mg tablet, sublingual 0.4 mg SUBLINGUAL Q5M PRN (Reason: Chest Pain) RF: 0 metoprolol tartrate 50 mg tablet 50 mg PO BID RF: 0 folic acid 1 mg tablet 2 mg PO DAILY RF: 0 All Day Allergy (cetirizine) 10 mg capsule 10 mg PO DAILY RF: 0 cyanocobalamin (vitamin B-12) 1,000 mcg/mL Solution 1,000 mcg IM Q30D RF: 0 Vitamin D3 50 mcg (2,000 unit) Tablet 100 mcg PO DAILY RF: 0 Discharge Orders: Discharge ED (Routine); Ordered 08/05/21 Ordered By: Nelson Menjivar Referrals: Tova Ireland MD [Primary Care Provider] - 1-3 days Patient Instructions: Abuse of Alcohol (ED), Suicide Prevention (ED), Opioid Safety Sign Out Sign Out Data: Patient Sign Out occurred on 08/04/21 at 18:24. Patient's care was discussed, and care was transferred from to Arley Baldwin MD. Patient Sign Out occurred on 08/05/21 at 06:35. Patient's care was discussed, and care was transferred from to Nelson Menjivar MD. Coding Level of Care Code ED Corporate Planner for Chg Fwd Exam Comprehensive Documented by User: Arley Baldwin MD 08/09/21 18:58 HPI - Psych General: Chief Complaint: Psychiatric Symptoms Stated Complaint: METH, ETOH, SI Time Seen by Provider: 08/04/21 17:17 PFSH ED PFSH: Medical History Alcohol abuse Atrial fibrillation Diabetes Hyperlipidemia Hypertension Major depression PTSD (post-traumatic stress disorder) SOB (shortness of breath) Tobacco abuse Surgical History H/O neck surgery Family History Father Cancer Lung disease TB Suicide Mother Dementia Lung disease TB Family/Other Diabetes Grandmother Stroke Denies family history of CAD (coronary artery disease) Clotting disorder Chronic kidney disease (CKD) Anesthesia complication Bleeding disorder Social History Smoking and tobacco status: current every day smoker Alcohol intake: current Course Vital Signs: Vital signs: Vital Signs Temperature 98.2 F 08/05/21 06:50 Pulse Rate 87 08/05/21 06:50 Respiratory Rate 18 08/05/21 06:50 Blood Pressure 157/96 08/05/21 06:50 Pulse Oximetry 94 08/05/21 06:50 MDM - Psych MDM Narrative: Medical decision making narrative: Patient care handoff received from previous ED physician. Patient continues to appear to be clinically intoxicated. Alcohol level greater than 400 and patient is positive for marijuana. Based on this the patient is unsafe for disposition. I waited for clinical sobriety and reassessment which was performed serially. Patient was noted to be improved regarding clinical intoxication in the morning. Patient handed off to morning ED physician Dr. Menjivar pending psychiatry service consult. Arley Baldwin MD Emergency Medicine Lab Data: Labs: Lab Results 08/04/21 08/04/21 08/04/21 17:30 17:30 17:30 WBC 5.5 10^3/uL 10^3/ uL (4.0-10.0) RBC 4.90 10^6/uL 10^6 /uL (4.1-5.3) Hgb 15.2 g/dL g/dL (11.7-16.6) Hct 44.4 % % (42.0-52.0) MCV 90.6 fl fl (80-94) MCH 31.0 pg pg (28.0-34.0) MCHC 34.2 g/dL g/dL (30.0-36.0) RDW 12.7 % % (12.1-15.1) Plt Count 179 10^3/cmm 10^3 /cmm (130-400) MPV 10.3 fL fL (7.4-10.4) Neut % (Auto) 42.7 % % Lymph % (Auto) 45.6 % % [place] % (Auto) 9.6 % % Eos % (Auto) 0.5 % % Baso % (Auto) 1.4 % % Neut # (Auto) 2.36 10^3/uL 10^3 /uL (1.8-7.7) Lymph # (Auto) 2.5 10^3/uL 10^3/ uL (0.8-4.8) [place] # (Auto) 0.5 10^3/uL 10^3/ uL (0.2-0.9) Eos # (Auto) 0.0 10^3/uL 10^3/ uL (0.0-0.8) Baso # (Auto) 0.1 10^3/uL 10^3/ uL (0.0-0.1) Nucleated RBC % (a uto) 0 % % Nucleated RBCs # 0.0 /100WBC /100W BC Sodium 137 mmol/L mmol/L (136-145) Potassium 4.0 mmol/L mmol/L (3.5-5.1) Chloride 96 mmol/L L mmol/ L (98-107) Carbon Dioxide 17 mmol/L L mmol/ L (22-29) Anion Gap 28.0 H (5-19) BUN 11 mg/dL mg/dL (8-23) Creatinine 0.7 mg/dL mg/dL (0.7-1.2) GFR Calculation 112.5 mL/min mL/m in (90-130) Glucose 94 mg/dL mg/dL (65-115) Calculated Osmolal ity 283 mOsm/kg L mOs m/kg (285-295) Calcium 8.4 mg/dL L mg/dL (8.5-10.5) Total Bilirubin 0.7 mg/dL mg/dL (0.15-1.2) AST 40 U/L U/L (0-40) ALT 16 U/L U/L (0-41) Alkaline Phosphata se 92 IU/L IU/L (40-130) Total Protein 6.7 g/dL g/dL (6.6-8.7) Albumin 4.0 g/dL g/dL (3.5-5.2) Globulin 2.7 g/dL g/dL (1.3-4.6) TSH 2.99 uIU/mL uIU/m L (0.27-4.20) Urine Color Urine Appearance Urine pH Ur Specific Gravit y Urine Protein Urine Glucose (UA) Urine Ketones Urine Blood Urine Nitrate Urine Bilirubin Urine Urobilinogen Ur Leukocyte Jenna ase Urine RBC Urine WBC Ur Squamous Epith Cells Amorphous Sediment Urine Bacteria Salicylates < 0.3 mg/dL L mg/ dL (3-10) Urine Opiates Scre en Acetaminophen < 5.0 ug/mL L ug/ mL (10-30) Ur Barbiturates Sc reen Ur Phencyclidine S crn Ur Amphetamines Sc reen U Benzodiazepines Scrn Urine Cocaine Scre en U Marijuana (THC) Screen Ethyl Alcohol 404 mg/dL H* mg/d L (0-10) Coronavirus 229E ( PCR) SARS-CoV-2 (PCR) 08/04/21 08/04/21 08/04/21 21:18 21:18 23:37 WBC RBC Hgb Hct MCV MCH MCHC RDW Plt Count MPV Neut % (Auto) Lymph % (Auto) [place] % (Auto) Eos % (Auto) Baso % (Auto) Neut # (Auto) Lymph # (Auto) [place] # (Auto) Eos # (Auto) Baso # (Auto) Nucleated RBC % (a uto) Nucleated RBCs # Sodium Potassium Chloride Carbon Dioxide Anion Gap BUN Creatinine GFR Calculation Glucose Calculated Osmolal ity Calcium Total Bilirubin AST ALT Alkaline Phosphata se Total Protein Albumin Globulin TSH Urine Color Yellow (Yellow) Urine Appearance Clear (CLEAR) Urine pH 5 (5-7) Ur Specific Gravit y 1.015 (1.005-1.030) Urine Protein Neg (Negative) Urine Glucose (UA) Norm (Normal) Urine Ketones Negative (Negative) Urine Blood Trace H (Negative) Urine Nitrate Negative (Negative) Urine Bilirubin Neg (Negative) Urine Urobilinogen Norm mg/dL mg/dL (Negative) Ur Leukocyte Jenna ase Negative (Negative) Urine RBC 0-4 /hpf H /hpf (0-2) Urine WBC 0-4 /hpf H /hpf (0-5) Ur Squamous Epith Cells 0-4 /hpf H /hpf (0-5) Amorphous Sediment Not Reportable Urine Bacteria Trace /hpf /hpf (NONE) Salicylates Urine Opiates Scre en Negative ng/mL ng /mL (Negative) Acetaminophen Ur Barbiturates Sc reen Negative ng/mL ng /mL (Negative) Ur Phencyclidine S crn Negative ng/mL ng /mL (Negative) Ur Amphetamines Sc reen Negative ng/mL ng /mL (Negative) U Benzodiazepines Scrn Negative ng/mL ng /mL (Negative) Urine Cocaine Scre en Negative ng/mL ng /mL (Negative) U Marijuana (THC) Screen Positive ng/mL H ng/mL (Negative) Ethyl Alcohol Coronavirus 229E ( PCR) Not detected (NOT DETECT) SARS-CoV-2 (PCR) Not detected (NOT DETECT) 08/05/21 10:36 WBC RBC Hgb Hct MCV MCH MCHC RDW Plt Count MPV Neut % (Auto) Lymph % (Auto) [place] % (Auto) Eos % (Auto) Baso % (Auto) Neut # (Auto) Lymph # (Auto) [place] # (Auto) Eos # (Auto) Baso # (Auto) Nucleated RBC % (a uto) Nucleated RBCs # Sodium Potassium Chloride Carbon Dioxide Anion Gap BUN Creatinine GFR Calculation Glucose Calculated Osmolal ity Calcium Total Bilirubin AST ALT Alkaline Phosphata se Total Protein Albumin Globulin TSH Urine Color Urine Appearance Urine pH Ur Specific Gravit y Urine Protein Urine Glucose (UA) Urine Ketones Urine Blood Urine Nitrate Urine Bilirubin Urine Urobilinogen Ur Leukocyte Jenna ase Urine RBC Urine WBC Ur Squamous Epith Cells Amorphous Sediment Urine Bacteria Salicylates Urine Opiates Scre en Acetaminophen Ur Barbiturates Sc reen Ur Phencyclidine S crn Ur Amphetamines Sc reen U Benzodiazepines Scrn Urine Cocaine Scre en U Marijuana (THC) Screen Ethyl Alcohol < 10 mg/dL mg/dL (0-10) Coronavirus 229E ( PCR) SARS-CoV-2 (PCR) Discharge Plan Discharge Patient Disposition: Home Clinical Impression: Alcohol intoxication, Suicidal ideation Condition: Stable Prescriptions: No Action Eliquis 5 mg tablet 5 mg PO BID RF: 0 thiamine HCl (vitamin B1) 100 mg tablet 100 mg PO DAILY RF: 0 pantoprazole 40 mg tablet,delayed release (DR/EC) 40 mg PO DAILY RF: 0 rosuvastatin 5 mg tablet 5 mg PO DAILY RF: 0 nitroglycerin [Nitrostat] 0.4 mg tablet, sublingual 0.4 mg SUBLINGUAL Q5M PRN (Reason: Chest Pain) RF: 0 metoprolol tartrate 50 mg tablet 50 mg PO BID RF: 0 folic acid 1 mg tablet 2 mg PO DAILY RF: 0 All Day Allergy (cetirizine) 10 mg capsule 10 mg PO DAILY RF: 0 cyanocobalamin (vitamin B-12) 1,000 mcg/mL Solution 1,000 mcg IM Q30D RF: 0 Vitamin D3 50 mcg (2,000 unit) Tablet 100 mcg PO DAILY RF: 0 Discharge Orders: Discharge ED (Routine); Ordered 08/05/21 Ordered By: Nelson Menjivar Referrals: Tova Ireland MD [Primary Care Provider] - 1-3 days Patient Instructions: Abuse of Alcohol (ED), Suicide Prevention (ED), Opioid Safety Sign Out Sign Out Data: Patient Sign Out occurred on 08/04/21 at 18:24. Patient's care was discussed, and care was transferred from to Arley Baldwin MD. Patient Sign Out occurred on 08/05/21 at 06:35. Patient's care was discussed, and care was transferred from to Nelson Menjivar MD. Coding Level of Care Code ED Corporate Planner for [employer] Fwd Exam Comprehensive
[2021-08-04 17:36] VITALS: BP 129/65; PULSE 159; RESP 22; O2SAT 99
[2021-08-04 17:41] LABS: Basophils # 0.1 10^3/uL (0.0-0.1); Basophils % 1.4 %; Eosinophils % 0.5 %; Hematocrit 44.4 % (42.0-52.0); Hemoglobin 15.2 g/dL (11.7-16.6); Lymphocytes # 2.5 10^3/uL (0.8-4.8); Lymphocytes % 45.6 %; Mean Corpuscular HGB Conc 34.2 g/dL (30.0-36.0); Mean Corpuscular Volume 90.6 fl (80-94); Mean Platelet Volume 10.3 fL (7.4-10.4); Monocytes # 0.5 10^3/uL (0.2-0.9); Monocytes % 9.6 %; Neutrophils # 2.36 10^3/uL (1.8-7.7); Neutrophils % 42.7 %; Nucleated Red Blood Cells % 0 %; Platelet Count 179 10^3/cmm (130-400); Red Cell Distribution Width 12.7 % (12.1-15.1); White Blood Count 5.5 10^3/uL (4.0-10.0)
--- NOTE | 2021-08-04 17:43 | ECG_ITS ---
[facility] Test Date: 2021-08-04 Pat Name: Merritt Lima Department: Room: Gender: Male Cash Shortage Investigator: : 1955 Requested By: Jayro Woo Order Number: [id number] Garret MD: Babs Hernández M.D. Measurements Intervals [place] Rate: 157 P: IA: QRS: -75 QRSD: 95 T: 75 QT: 286 QTc: 463 Interpretive Statements ATRIAL FIBRILLATION WITH RAPID VENTRICULAR RESPONSE INCOMPLETE RIGHT BUNDLE BRANCH BLOCK [90+ ms QRS DURATION, TERMINAL R IN V1/V2, 40+ ms S IN I/aVL/V4/V5/V6] LEFT ANTERIOR FASCICULAR BLOCK [QRS AXIS <= -45, QR IN I, RS IN II] ANTEROSEPTAL MYOCARDIAL INFARCTION , OF INDETERMINATE AGE [40+ ms Q WAVE IN V1-V4] Compared to ECG 04/04/2021 18:02:55 No significant changes Electronically Signed On 08-05-2021 5:29:14 CONSERVATION SPECIALIST by Babs Hernández M.D. [id number]
--- NOTE | 2021-08-04 17:43 | XRR_ITS ---
PROCEDURE INFORMATION: Exam: XR Chest Exam date and time: 08/04/2021 5:43 PM Age: 65 years old Clinical indication: Shortness of breath; Additional info: Dyspnea/cough TECHNIQUE: Imaging protocol: XR of the chest. Views: 1 view. COMPARISON: CR (CHEST, ) 04/04/2021 4:06 PM FINDINGS: Lungs: Unremarkable. No consolidation. Pleural spaces: Unremarkable. No pleural effusion. No pneumothorax. Heart/Mediastinum: Top-normal heart size for AP technique. Bones/joints: Unremarkable. XR/XR chest 1V portable [id number] IMPRESSION: No acute findings.
--- NOTE | 2021-08-04 17:44 | CTR_ITS ---
PROCEDURE INFORMATION: Exam: CT Head Without Contrast Exam date and time: 08/04/2021 5:44 PM Age: 65 years old Clinical indication: Altered mental status/memory loss; Prior surgery; Surgery type: Neck; Additional info: Fall/intoxication/pt on anticoagulants TECHNIQUE: Imaging protocol: Computed tomography of the head without contrast. Radiation optimization: All CT scans at this facility use at least one of these dose optimization techniques: automated exposure control; mA and/or kV adjustment per patient size (includes targeted exams where dose is matched to clinical indication); or iterative reconstruction. COMPARISON: CT head wo con* [id number] 08/29/2017 12:04 PM RADIATION DOSE METRICS: Total DLP (mGy-cm): 977.7 FINDINGS: Brain: No hemorrhage. Moderate diffuse cerebral atrophy and sequela of chronic small vessel ischemic disease. No mass effect. Cerebral ventricles: No ventriculomegaly. Paranasal sinuses: Visualized sinuses are unremarkable. No fluid levels. Mastoid air cells: Right mastoid effusion without erosive changes. Bones/joints: Unremarkable. No acute fracture. Soft tissues: Unremarkable. CT/CT head wo con* [id number] IMPRESSION: 1. No acute intracranial abnormality. 2. Right mastoid effusion.
[2021-08-04] MEDS: diphenhydrAMINE 50 mg/mL SDV 1mL 25 MG IVP (17:50)
[2021-08-04] MEDS: ondansetron 2 mg/ML SDV 2 mL 4 MG IVP (17:50)
[2021-08-04] MEDS: sodium chloride 0.9% 1,000 ML 999 ML IV (17:50)
[2021-08-04] MEDS: LORazepam 2 mg/mL INJ 1 mL IV (17:51)
[2021-08-04] MEDS: pantoprazole 40 mg SDV IVP (17:51)
[2021-08-04 18:04] LABS: Acetaminophen < 5.0 ug/mL (10-30); Alanine Aminotransferase 16 U/L (0-41); Alkaline Phosphatase 92 IU/L (40-130); Aspartate Amino Transferase 40 U/L (0-40); Blood Urea Nitrogen 11 mg/dL (8-23); Calcium 8.4 mg/dL (8.5-10.5); Carbon Dioxide 17 mmol/L (22-29); Chloride 96 mmol/L (98-107); Globulin 2.7 g/dL (1.3-4.6); Glomerular Filtration Rate 112.5 mL/min (90-130); Glucose 94 mg/dL (65-115); Osmolality Calculated 283 mOsm/kg (285-295); Salicylate < 0.3 mg/dL (3-10); Sodium 137 mmol/L (136-145); Total Bilirubin 0.7 mg/dL (0.15-1.2); Total Protein 6.7 g/dL (6.6-8.7)
[2021-08-04 18:06] LABS: Alcohol Level 404 mg/dL (0-10)
[2021-08-04 18:53] LABS: Thyroid Stimulating Hormone 2.99 uIU/mL (0.27-4.20)
[2021-08-04] MEDS: folic acid 1 MG, multivitamin inj 10 ML, thiamine 100 MG in sodium chloride 0.9% 1,000 ML 252.8 MG IV (19:00)
[2021-08-04] MEDS: metoprolol tartrate 1 mg/1 mL SDV 5 mL 5 MG IVP ×2 (19:54→22:21)
[2021-08-04 20:00] VITALS: BP 141/102; PULSE 128; RESP 16; O2SAT 94
[2021-08-04 21:34] LABS: Add Urine Microscopic? YES; Amphetamines Screen Urine Negative (Negative); Barbiturates Screen Urine Negative (Negative); Benzodiazepines Screen Urine Negative (Negative); Bilirubin Urine Neg (Negative); Blood Urine Trace (Negative); Cocaine Screen Urine Negative (Negative); Glucose Urine UA Norm (Normal); Ketones Urine Negative (Negative); Leukocyte Esterase Urine Negative (Negative); Nitrate Urine Negative (Negative); Opiate Screen Urine Negative (Negative); PCP Screen Urine Negative (Negative); Protein Urine Neg (Negative); Specific Gravity, Urine 1.015 (1.005-1.030); THC Screen Urine Positive (Negative); Urine Appearance Clear (CLEAR); Urine Color Yellow (Yellow); Urobilinogen Urine Norm (Negative); pH Urine 5 (5-7)
[2021-08-04 21:35] LABS: Bacteria Urine TRACE /hpf; RBC Urine 0-4 /hpf (0-2); Squamous Epithelial Cell Urine 0-4 /hpf (0-5); WBC Urine 0-4 /hpf (0-5)
[2021-08-04 21:39] LABS: Add Urine Culture? No
[2021-08-04] MEDS: metoprolol tartrate 50 mg Tablet PO (22:00)
[2021-08-04 23:40] VITALS: BP 137/89; PULSE 92; RESP 20; O2SAT 91
[2021-08-05 01:17] VITALS: BP 145/91; PULSE 87; RESP 18; O2SAT 93
[2021-08-05 03:18] LABS: Adenovirus Not Detected (NOT DETECT); Chlamydia Pneumoniae Not Detected (NOT DETECT); Coronavirus 229E,HKU1,NL63,OC4 Not Detected (NOT DETECT); Human Metapneumovirus Not Detected (NOT DETECT); Human Rhinovirus/Enterovirus Not Detected (NOT DETECT); Influenza A Not Detected (NOT DETECT); Influenza A H1 Not Detected (NOT DETECT); Influenza A H1-2009 Not Detected (NOT DETECT); Influenza A H3 Not Detected (NOT DETECT); Influenza B Not Detected (NOT DETECT); Mycoplasma Pneumoniae Not Detected (NOT DETECT); Parainfluenza Virus Type 1 Not Detected (NOT DETECT); Parainfluenza Virus Type 2 Not Detected (NOT DETECT); Parainfluenza Virus Type 3 Not Detected (NOT DETECT); Parainfluenza Virus Type 4 Not Detected (NOT DETECT); Respiratory Syncytial Virus A Not Detected (NOT DETECT); Respiratory Syncytial Virus B Not Detected (NOT DETECT); SARS-COV-2 Not Detected (NOT DETECT)
[2021-08-05 05:07] VITALS: BP 155/98; PULSE 87; RESP 18; TEMP 36.8; O2SAT 94
[2021-08-05 06:50] VITALS: BP 157/96; PULSE 87; RESP 18; TEMP 36.8; O2SAT 94
[2021-08-05 11:03] LABS: Alcohol Level < 10 mg/dL (0-10)
--- NOTE | 2021-08-05 11:21 | PC.NURSE ---
[facility] UTILIZATION NURSE #: [phone]
--- NOTE | 2021-08-05 11:49 | W.PM.PSYCONS ---
Providers/Reason for Consult Consulting Physican/Specialty*: Tristin Dillard MD. Psychiatry. Reason for Consult*: Evaluation for lethality and safety for discharge Requesting Laracian: Jayro Alvarado Primary Care Provider: Tova Ireland MD Psych Consult HPI History of Present Illness Merritt Lima is a 65 year old male who presented to the emergency department the following report: Chief Complaint: Psychiatric Symptoms Stated Complaint: METH, ETOH, SI Time Seen by Provider: 08/04/21 17:17 History of Present Illness: HPI Narrative: 65-year-old male presents emergency room via EMS with the attendance of the [employer] [employer] officer. Patient is obviously obnoxiously intoxicated repeatedly stating he wants to kill himself. States his dad kill himself and he wants to kill himself as well. Relates it to his time in [place]. I cannot really get him to explain anything else that happened that resulted in him presenting to the emergency room. He did tell the nursing staff had been drinking heavily for the last several days he also has been using methamphetamines and marijuana. He mentions he has been admitted to the Neuropsych Unit in the past. complaint: suicidal ideation Onset (ago): unknown Duration: constant History of same: Yes Relieving factors: none Exacerbating factors: alcohol and drug use Context: recent alcohol abuse and recent drug abuse Associated psychiatric symptoms: depression and suicidal ideation Associated symptoms: Reports suicidal ideation; Deny auditory hallucinations, visual hallucinations, delusions, depression, homicidal ideation or racing thoughts Treatments prior to arrival: none If self harm: admits thoughts of self harm. He was struggling with altered mental status initially with his intoxication but with some increase in mental clarity a psychiatric consult requested to determine whether hospitalization was still necessary. Patient presents today reporting that he had been without significant psychiatric history but did report that there was some difficulties with addiction specifically alcohol in the past. He reports however that he had been doing much better but that the of a significant person in his life led to him drinking heavily which led to him presenting to the hospital. He reports that he has struggled with things starting to get out of control and that he wants to stop drinking but is unsure if he can do it by himself and fearful that he might act on some of the thoughts he is having given his family history. He endorsed that his father committed suicide and that he has had low moments where he has also contemplated taking his life. He reports feeling very driven to get his thinking back under control and reports that there is a place in [place] that he had success at before and believes he can go back to to try to get things back under control. He endorsed a willingness however to go anywhere. He also gave the name of his therapist at the [place] who he reports might be able to assist him in getting into some [place] resources as well. He reported a lot of his difficulties are related to the isolation that he currently has. His friend that was a great support of his. PFSH NPU PFSH: Medical History (Updated 08/23/21 @ 18:24 by Tristin Dillard MD) Alcohol abuse Atrial fibrillation Diabetes Hyperlipidemia Hypertension Major depression PTSD (post-traumatic stress disorder) SOB (shortness of breath) Tobacco abuse Surgical History H/O neck surgery Family History Father Cancer Lung disease TB Suicide Mother Dementia Lung disease TB Family/Other Diabetes Grandmother Stroke Denies family history of CAD (coronary artery disease) Clotting disorder Chronic kidney disease (CKD) Anesthesia complication Bleeding disorder Social History Smoking and tobacco status: current every day smoker Alcohol intake: current Mental Status Exam MSE Comments: This is a well-nourished well-developed elderly white male with hospital scrubs on with limited grooming but adequate eye contact. No abnormal movements except for mild psychomotor retardation. Cooperative with exam in no acute distress. Speech was decreased rate and volume. Mood described as down, affect congruent. Thought process organized. Thought content: Patient endorsed suicidal ideation but denied homicidal ideation, there were no delusions reported or noted, he denied any auditory or visual hallucinations. Attention and concentration were intact and memory appeared reliable but none were formally tested. He is alert and oriented x3. Insight and judgment appear limited impulse control is impaired. Vitals/I&O/Wt Last Vital Signs Temp 98.2 F 08/05/21 06:50 Pulse 87 08/05/21 06:50 Resp 18 08/05/21 06:50 BP 157/96 08/05/21 06:50 Pulse Ox 94 01/05/22 06:50 08/04/21 08/05/21 08/05/21 22:59 06:59 14:59 Intake Total Balance A&P Assessment and plan (1) Smoking addiction: Status: Acute (2) SOB (shortness of breath): Status: Acute (3) Diabetes: Status: Acute Qualifiers: Diabetes mellitus complication status: with hyperglycemia Diabetes mellitus prison insulin use: without predatory animal exterminator use Diabetes mellitus type: type 2 Qualified Code(s): E11.65 - Type 2 diabetes mellitus with hyperglycemia (4) Hypertension: Status: Acute Qualifiers: Hypertension type: essential hypertension Qualified Code(s): I10 - Essential (primary) hypertension (5) Hyperlipidemia: Status: Acute Qualifiers: Hyperlipidemia type: mixed hyperlipidemia Qualified Code(s): E78.2 - Mixed hyperlipidemia (6) Atrial fibrillation: Status: Acute (7) PTSD (post-traumatic stress disorder): Status: Acute (8) Depression: Status: Acute (9) Suicidal ideation: Status: Acute Additional A&P Information This is a 65-year-old white male with a long history of addiction and medical in for mental health and paternal suicide who presents with a relapse on alcohol and suicidal ideation without significant supports in the community. 1. Patient continues to have suicidal thoughts even though his mental status has improved. 2. Agree with continued referral to inpatient services 3. We will evaluate for continued necessity for inpatient services if he does not get placed. Coding Level of Care Code Acute Computer Repair Engineer for [facility] Fwd Diagnoses Smoking addiction F17.200 SOB (shortness of breath) R06.02 Diabetes E11.65 Diabetes mellitus complication status: with hyperglycemia Diabetes mellitus prison insulin use: without prison use Diabetes mellitus type: type 2 Hypertension I10 Hypertension type: essential hypertension Hyperlipidemia E78.2 Hyperlipidemia type: mixed hyperlipidemia Atrial fibrillation I48.91 PTSD (post-traumatic stress disorder) F43.10 Depression F32.A Suicidal ideation R45.851
== END 2021-08-05 12:38 | disposition home or self-care (01) ==
PROVIDERS: Family Medicine; Emergency Provider Emergency Medicine; PCP Family Medicine
DX: R45.851 Suicidal ideations (principal); F10.129 Alcohol abuse with intoxication, unspecified; F15.90 Other stimulant use, unspecified, uncomplicated; Y90.8 Blood alcohol level of 240 mg/100 ml or more; F12.90 Cannabis use, unspecified, uncomplicated; F17.210 Nicotine dependence, cigarettes, uncomplicated; Z79.01 Long term (current) use of anticoagulants; I48.91 Unspecified atrial fibrillation; I10 Essential (primary) hypertension; E78.5 Hyperlipidemia, unspecified
CPT/HCPCS: 36415; 70450; 71045; 80053; 80306; 80307; 81001; 84443; 85025; 87635; 93005; 96361; 96374; 96375; 96376; 99284; C9113; J1200; J2060; J2405; J3411; J3490; J7030

== ENCOUNTER 2021-08-07 13:43 | Emergency (ER) | payer OTHER, MEDICARE, SELFPAY ==
[2021-08-07] VITALS (7 sets, daily range): BP systolic 113–135; BP diastolic 63–101; PULSE 99–144; RESP 15–28; TEMP 36.7; O2SAT 95–99; BMI 27.1
--- NOTE | 2021-08-07 14:07 | ED.C_ITS ---
Documented by User: Jayro Alvarado DO 08/11/21 17:46 HPI - Psych General: Chief Complaint: Psychiatric Symptoms Stated Complaint: SUBSTANCE ABUSE/ HALLUCINATIONS Time Seen by Provider: 08/07/21 13:50 History of Present Illness: HPI Narrative: 65-year-old male presents emergency room via EMS. He was called by family and neighbors he was having hallucinations auditory and visual outside of his home. He admits to having been using methamphetamines and drinking alcohol has been using methamphetamines a couple of times since he was last here. He repeatedly denies any suicidal or homicidal ideation. He states he wants to quit using mass. MD complaint: feels depressed Onset (ago): day(s) Duration: constant History of same: Yes Relieving factors: none Exacerbating factors: alcohol and drug use Associated symptoms: Reports auditory hallucinations and visual hallucinations; Deny homicidal ideation or suicidal ideation Treatments prior to arrival: none Review of Systems General: Reports: ROS unobtainable due to mental status Psych: Reports: visual hallucinations and auditory hallucinations; Denies: suicidal ideation or homicidal ideation FOR[facility]LY [facility] ED PFSH: Medical History (Updated 08/11/21 @ 15:38 by Jayro Alvarado DO) Alcohol abuse Atrial fibrillation Diabetes Hyperlipidemia Hypertension Major depression PTSD (post-traumatic stress disorder) SOB (shortness of breath) Tobacco abuse Surgical History H/O neck surgery Family History Father Cancer Lung disease TB Suicide Mother Dementia Lung disease TB Family/Other Diabetes Grandmother Stroke Denies family history of CAD (coronary artery disease) Clotting disorder Chronic kidney disease (CKD) Anesthesia complication Bleeding disorder Social History Smoking and tobacco status: current every day smoker Alcohol intake: current Physical Exam Const: GENERAL APPEARANCE: cooperative and comfortable ORIENTATION/CONSCIOUSNESS: Yes awake HENMT: COMMON NORMALS: normocephalic, atraumatic and hearing grossly normal bilaterally HEAD & SCALP: normocephalic and atraumatic Neck/C-Spine: COMMON NORMALS: no JVD Resp: COMMON NORMALS: normal respiratory effort, No retractions, No use of accessory muscles and clear to auscultation bilaterally AUSCULTATION: clear to auscultation bilaterally Cardio: COMMON NORMALS: no JVD, regular rate, regular rhythm and No murmurs present (Cardio) RATE: regular rate RHYTHM: regular rhythm GI: COMMON NORMALS: Soft to palpation and No hepatosplenomegaly present AUSCULTATION: Yes normoactive bowel sounds PALPATION: Yes Soft to palpation, No Tenderness to palpation present (GI), No Guarding due to palpation present (GI) and Yes No hepatosplenomegaly present Extremity: COMMON NORMALS: normal to inspection, capillary refill normal, no clubbing, cyanosis or edema, no calf tenderness and no pedal edema Skin: COMMON NORMALS: no rashes or lesions noted GENERAL SKIN EXAM: no rashes or lesions noted Course Vital Signs: Vital signs: Vital Signs Temperature 98.6 F 08/10/21 13:00 Pulse Rate 132 H 08/11/21 11:55 Respiratory Rate 18 08/11/21 11:55 Blood Pressure 134/88 08/11/21 11:55 Pulse Oximetry 97 08/11/21 11:55 MDM - Psych MDM Narrative: Medical decision making narrative: Resumed care at change of shift a.m. 08/08/2021. Patient is still having some hallucinations but is much im proved. He was given some Zyprexa p.o. overnight and this seems to have helped. We had made contacted several facilities about transfer for [facility] psych care none have accepted. We had this similar problem previous time he was here he was on a 96-hour hold and we had waited until he was no longer under the influence Dr. Dillard seen him at that time and then rescinded the 96 and he was discharged. I talked to Dr. Dillard yesterday if we are not able to find placement for him overnight the plan was for Dr. Dillard to see him in the morning and reevaluate. He has been somewhat tachycardic he was given some beta-anne this morning. 08/10/2021 4:50 AM. Resumed care once again. We are still working on finding patient placement for psychiatric illnesses. He is still having acute psychosis with auditory and visual hallucinations. According to orders he was given Geodon last night as well as Zyprexa. His regular medications were all ordered this morning. I did change his metoprolol to tartrate to succinate due to formulary constraints switched from rosuvastatin to atorvastatin. We will asked Dr. Dillard to see the patient today for a formal consult and recommendations while we continue to search for placement for this patient. 08/11/2021 7:27 AM resumed care again this morning. Reviewed chart patient has received several doses of IV metoprolol overnight. We started him on 50 mg of metoprolol succinate. Will increase that to a total of 75 p.o. this morning in addition to the IV he has received. His rate at this time is 90. Remains in atrial fibrillation but will require higher dose of metoprolol to maintain control. He has been accepted by [facility]. We are still finalizing arrangements for transfer. Patient was transferred via ground ambulance to [facility]. He did have a little breakthrough A. fib which was treated by increasing his beta-anne. Lab Data: Labs: Lab Results 08/07/21 08/07/21 08/07/21 14:25 14:25 14:25 WBC 4.9 10^3/uL 10^3/ uL (4.0-10.0) RBC 4.15 10^6/uL 10^6 /uL (4.1-5.3) Hgb 12.8 g/dL g/dL (11.7-16.6) Hct 39.0 % L % (42.0-52.0) MCV 94.0 fl fl (80-94) MCH 30.8 pg pg (28.0-34.0) MCHC 32.8 g/dL g/dL (30.0-36.0) RDW 12.4 % % (12.1-15.1) Plt Count 101 10^3/cmm L 10 ^3/cmm (130-400) MPV 11.5 fL H fL (7.4-10.4) Neut % (Auto) 70.6 % % Lymph % (Auto) 18.3 % % Norman % (Auto) 10.1 % % Eos % (Auto) 0.4 % % Baso % (Auto) 0.4 % % Neut # (Auto) 3.44 10^3/uL 10^3 /uL (1.8-7.7) Lymph # (Auto) 0.9 10^3/uL 10^3/ uL (0.8-4.8) Norman # (Auto) 0.5 10^3/uL 10^3/ uL (0.2-0.9) Eos # (Auto) 0.0 10^3/uL 10^3/ uL (0.0-0.8) Baso # (Auto) 0.0 10^3/uL 10^3/ uL (0.0-0.1) Nucleated RBC % (a uto) 0 % % Nucleated RBCs # 0.0 /100WBC /100W BC Sodium 135 mmol/L L mmol /L (136-145) Potassium 3.2 mmol/L L mmol /L (3.5-5.1) Chloride 95 mmol/L L mmol/ L (98-107) Carbon Dioxide 23 mmol/L mmol/L (22-29) Anion Gap 20.2 H (5-19) BUN 10 mg/dL mg/dL (8-23) Creatinine 1.3 mg/dL H mg/dL (0.7-1.2) GFR Calculation 55.1 mL/min L mL/ min (90-130) Glucose 105 mg/dL mg/dL (65-115) Calculated Osmolal ity 279 mOsm/kg L mOs m/kg (285-295) Calcium 8.8 mg/dL mg/dL (8.5-10.5) Total Bilirubin 0.9 mg/dL mg/dL (0.15-1.2) AST 38 U/L U/L (0-40) ALT 16 U/L U/L (0-41) Alkaline Phosphata se 75 IU/L IU/L (40-130) Troponin T Baselin e Troponin T 120 Min [place] Troponin T Total Protein 6.1 g/dL L g/dL (6.6-8.7) Albumin 3.9 g/dL g/dL (3.5-5.2) Globulin 2.2 g/dL g/dL (1.3-4.6) Urine Color Dark yellow (Yellow) Urine Appearance Hazy A (CLEAR) Urine pH 5 (5-7) Ur Specific Gravit y 1.020 (1.005-1.030) Urine Protein Trace (Negative) Urine Glucose (UA) Norm (Normal) Urine Ketones 1+ H (Negative) Urine Blood 2+ H (Negative) Urine Nitrate Negative (Negative) Urine Bilirubin 1+ H (Negative) Urine Urobilinogen 4 mg/dL H mg/dL (Negative) Ur Leukocyte Jenna ase Trace H (Negative) Urine RBC 5-10 /hpf H /hpf (0-2) Urine WBC 5-10 /hpf H /hpf (0-5) Ur Squamous Epith Cells 0-4 /hpf H /hpf (0-5) Calcium Oxalate Cr ystal 0-4 /hpf H /hpf Other Crystals 50 /hpf /hpf Amorphous Sediment Not Reportable Urine Bacteria Trace /hpf /hpf (NONE) Hyaline Casts 10-15 /lpf H /lpf Urine Mucus 3+ /hpf /hpf Urine Sperm 1+ /hpf /hpf Salicylates < 0.3 mg/dL L mg/ dL (3-10) Urine Opiates Scre en Acetaminophen < 5.0 ug/mL L ug/ mL (10-30) Ur Barbiturates Sc reen Ur Phencyclidine S crn Ur Amphetamines Sc reen U Benzodiazepines Scrn Urine Cocaine Scre en U Marijuana (THC) Screen Ethyl Alcohol < 10 mg/dL mg/dL (0-10) SARS-CoV-2 Ag (Rap id) 08/07/21 08/07/21 08/07/21 14:25 14:25 16:25 WBC RBC Hgb Hct MCV MCH MCHC RDW Plt Count MPV Neut % (Auto) Lymph % (Auto) Norman % (Auto) Eos % (Auto) Baso % (Auto) Neut # (Auto) Lymph # (Auto) Norman # (Auto) Eos # (Auto) Baso # (Auto) Nucleated RBC % (a uto) Nucleated RBCs # Sodium Potassium Chloride Carbon Dioxide Anion Gap BUN Creatinine GFR Calculation Glucose Calculated Osmolal ity Calcium Total Bilirubin AST ALT Alkaline Phosphata se Troponin T Baselin e 21 ng/L H ng/L (0-15) Troponin T 120 Min [place] 19.80 ng/L H ng/L (0-15) Delta Troponin T -1.20 ABS# L ABS# (0-10) Total Protein Albumin Globulin Urine Color Urine Appearance Urine pH Ur Specific Gravit y Urine Protein Urine Glucose (UA) Urine Ketones Urine Blood Urine Nitrate Urine Bilirubin Urine Urobilinogen Ur Leukocyte Jenna ase Urine RBC Urine WBC Ur Squamous Epith Cells Calcium Oxalate Cr ystal Other Crystals Amorphous Sediment Urine Bacteria Hyaline Casts Urine Mucus Urine Sperm Salicylates Urine Opiates Scre en Negative ng/mL ng /mL (Negative) Acetaminophen Ur Barbiturates Sc reen Negative ng/mL ng /mL (Negative) Ur Phencyclidine S crn Negative ng/mL ng /mL (Negative) Ur Amphetamines Sc reen Positive ng/mL H ng/mL (Negative) U Benzodiazepines Scrn Positive ng/mL H ng/mL (Negative) Urine Cocaine Scre en Positive ng/mL H ng/mL (Negative) U Marijuana (THC) Screen Positive ng/mL H ng/mL (Negative) Ethyl Alcohol SARS-CoV-2 Ag (Rap id) 08/07/21 08/11/21 08/11/21 17:10 00:38 00:44 WBC 3.2 10^3/uL L 10^ 3/uL (4.0-10.0) RBC 3.88 10^6/uL L 10 ^6/uL (4.1-5.3) Hgb 12.1 g/dL g/dL (11.7-16.6) Hct 36.1 % L % (42.0-52.0) MCV 93.0 fl fl (80-94) MCH 31.2 pg pg (28.0-34.0) MCHC 33.5 g/dL g/dL (30.0-36.0) RDW 12.9 % % (12.1-15.1) Plt Count 109 10^3/cmm L 10 ^3/cmm (130-400) MPV 11.1 fL H fL (7.4-10.4) Neut % (Auto) 59.0 % % Lymph % (Auto) 23.8 % % Norman % (Auto) 15.1 % % Eos % (Auto) 1.2 % % Baso % (Auto) 0.6 % % Neut # (Auto) 1.91 10^3/uL 10^3 /uL (1.8-7.7) Lymph # (Auto) 0.8 10^3/uL 10^3/ uL (0.8-4.8) Norman # (Auto) 0.5 10^3/uL 10^3/ uL (0.2-0.9) Eos # (Auto) 0.0 10^3/uL 10^3/ uL (0.0-0.8) Baso # (Auto) 0.0 10^3/uL 10^3/ uL (0.0-0.1) Nucleated RBC % (a uto) 0 % % Nucleated RBCs # 0.0 /100WBC /100W BC Sodium Potassium Chloride Carbon Dioxide Anion Gap BUN Creatinine GFR Calculation Glucose Calculated Osmolal ity Calcium Total Bilirubin AST ALT Alkaline Phosphata se Troponin T Baselin e Troponin T 120 Min [place] Troponin T Total Protein Albumin Globulin Urine Color Urine Appearance Urine pH Ur Specific Gravit y Urine Protein Urine Glucose (UA) Urine Ketones Urine Blood Urine Nitrate Urine Bilirubin Urine Urobilinogen Ur Leukocyte Jenna ase Urine RBC Urine WBC Ur Squamous Epith Cells Calcium Oxalate Cr ystal Other Crystals Amorphous Sediment Urine Bacteria Hyaline Casts Urine Mucus Urine Sperm Salicylates Urine Opiates Scre en Acetaminophen Ur Barbiturates Sc reen Ur Phencyclidine S crn Ur Amphetamines Sc reen U Benzodiazepines Scrn Urine Cocaine Scre en U Marijuana (THC) Screen Ethyl Alcohol SARS-CoV-2 Ag (Rap id) Negative Negative (Negative) (Negative) 08/11/21 08/11/21 08/11/21 00:44 01:15 01:15 WBC RBC Hgb Hct MCV MCH MCHC RDW Plt Count MPV Neut % (Auto) Lymph % (Auto) Norman % (Auto) Eos % (Auto) Baso % (Auto) Neut # (Auto) Lymph # (Auto) Norman # (Auto) Eos # (Auto) Baso # (Auto) Nucleated RBC % (a uto) Nucleated RBCs # Sodium 135 mmol/L L mmol /L (136-145) Potassium 3.1 mmol/L L mmol /L (3.5-5.1) Chloride 98 mmol/L mmol/L (98-107) Carbon Dioxide 27 mmol/L mmol/L (22-29) Anion Gap 13.1 (5-19) BUN 12 mg/dL mg/dL (8-23) Creatinine 0.9 mg/dL mg/dL (0.7-1.2) GFR Calculation 84.2 mL/min L mL/ min (90-130) Glucose 166 mg/dL H mg/dL (65-115) Calculated Osmolal ity 284 mOsm/kg L mOs m/kg (285-295) Calcium 7.8 mg/dL L mg/dL (8.5-10.5) Total Bilirubin 0.4 mg/dL mg/dL (0.15-1.2) AST 53 U/L H U/L (0-40) ALT 33 U/L U/L (0-41) Alkaline Phosphata se 70 IU/L IU/L (40-130) Troponin T Baselin e Troponin T 120 Min [place] Troponin T Total Protein 5.6 g/dL L g/dL (6.6-8.7) Albumin 3.5 g/dL g/dL (3.5-5.2) Globulin 2.1 g/dL g/dL (1.3-4.6) Urine Color Yellow (Yellow) Urine Appearance Clear (CLEAR) Urine pH 5 (5-7) Ur Specific Gravit y 1.020 (1.005-1.030) Urine Protein Neg (Negative) Urine Glucose (UA) Norm (Normal) Urine Ketones Negative (Negative) Urine Blood 2+ H (Negative) Urine Nitrate Negative (Negative) Urine Bilirubin Neg (Negative) Urine Urobilinogen 1 mg/dL H mg/dL (Negative) Ur Leukocyte Jenna ase Negative (Negative) Urine RBC Rare /hpf /hpf (0-2) Urine WBC None /hpf /hpf (0-5) Ur Squamous Epith Cells Rare /hpf /hpf (0-5) Calcium Oxalate Cr ystal Other Crystals Amorphous Sediment Not Reportable Urine Bacteria Trace /hpf /hpf (NONE) Hyaline Casts Rare /lpf /lpf Urine Mucus Trace /hpf /hpf Urine Sperm Salicylates < 0.3 mg/dL L mg/ dL (3-10) Urine Opiates Scre en Negative ng/mL ng /mL (Negative) Acetaminophen < 5.0 ug/mL L ug/ mL (10-30) Ur Barbiturates Sc reen Negative ng/mL ng /mL (Negative) Ur Phencyclidine S crn Negative ng/mL ng /mL (Negative) Ur Amphetamines Sc reen Positive ng/mL H ng/mL (Negative) U Benzodiazepines Scrn Positive ng/mL H ng/mL (Negative) Urine Cocaine Scre en Negative ng/mL ng /mL (Negative) U Marijuana (THC) Screen Positive ng/mL H ng/mL (Negative) Ethyl Alcohol < 10 mg/dL mg/dL (0-10) SARS-CoV-2 Ag (Rap id) Discharge Plan Discharge Patient Disposition: Xfer Psychiatric Hosp Clinical Impression: Acute psychosis, Drug-induced psychotic disorder, Atrial fibrillation Referrals: Tova Ireland MD [Primary Care Provider] - Sign Out Sign Out Data: Patient Sign Out occurred on 08/08/21 at 07:07. Patient's care was discussed, and care was transferred from to Jayro Alvarado DO. Coding Level of Care Code ED Dental Laboratory Supervisor for Chg Fwd Exam Comprehensive Documented by User: Chava Knowles DO 08/08/21 05:31 HPI - Psych General: Chief Complaint: Psychiatric Symptoms Stated Complaint: SUBSTANCE ABUSE/ HALLUCINATIONS Time Seen by Provider: 08/07/21 13:50 PFSH ED PFSH: Medical History (Updated 08/11/21 @ 15:38 by Jayro Alvarado DO) Alcohol abuse Atrial fibrillation Diabetes Hyperlipidemia Hypertension Major depression PTSD (post-traumatic stress disorder) SOB (shortness of breath) Tobacco abuse Surgical History H/O neck surgery Family History Father Cancer Lung disease TB Suicide Mother Dementia Lung disease TB Family/Other Diabetes Grandmother Stroke Denies family history of CAD (coronary artery disease) Clotting disorder Chronic kidney disease (CKD) Anesthesia complication Bleeding disorder Social History Smoking and tobacco status: current every day smoker Alcohol intake: current Course Vital Signs: Vital signs: Vital Signs Temperature 98.6 F 08/10/21 13:00 Pulse Rate 132 H 08/11/21 11:55 Respiratory Rate 18 08/11/21 11:55 Blood Pressure 134/88 08/11/21 11:55 Pulse Oximetry 97 08/11/21 11:55 MDM - Psych MDM Narrative: Medical decision making narrative: 65-year-old male checked out to me at shift change by Dr. Alvarado. This man has tested positive for multiple substances. He had been actively hallucinating. This is since improved significantly. As he was acutely psychotic, over 65, and had been shouting for someone to kill him, was thought necessary for geriatric psychiatry admission. He has been calm and cooperative. He was given Zyprexa Zydis to help him sleep overnight, and has rested comfortably. His hallucinations have improved since this. His laboratory was not remarkable, and he appears medically stable. Multiple geriatric psychiatry facilities have been called, and no beds are available for this patient. We are not a geriatric psychiatry inpatient facility. With improvement in his drug-related psychosis, we are considering reevaluation by psychiatry in the emergency department later this morning. Lab Data: Labs: Lab Results 08/07/21 08/07/21 08/07/21 14:25 14:25 14:25 WBC 4.9 10^3/uL 10^3/ uL (4.0-10.0) RBC 4.15 10^6/uL 10^6 /uL (4.1-5.3) Hgb 12.8 g/dL g/dL (11.7-16.6) Hct 39.0 % L % (42.0-52.0) MCV 94.0 fl fl (80-94) MCH 30.8 pg pg (28.0-34.0) MCHC 32.8 g/dL g/dL (30.0-36.0) RDW 12.4 % % (12.1-15.1) Plt Count 101 10^3/cmm L 10 ^3/cmm (130-400) MPV 11.5 fL H fL (7.4-10.4) Neut % (Auto) 70.6 % % Lymph % (Auto) 18.3 % % Norman % (Auto) 10.1 % % Eos % (Auto) 0.4 % % Baso % (Auto) 0.4 % % Neut # (Auto) 3.44 10^3/uL 10^3 /uL (1.8-7.7) Lymph # (Auto) 0.9 10^3/uL 10^3/ uL (0.8-4.8) Norman # (Auto) 0.5 10^3/uL 10^3/ uL (0.2-0.9) Eos # (Auto) 0.0 10^3/uL 10^3/ uL (0.0-0.8) Baso # (Auto) 0.0 10^3/uL 10^3/ uL (0.0-0.1) Nucleated RBC % (a uto) 0 % % Nucleated RBCs # 0.0 /100WBC /100W BC Sodium 135 mmol/L L mmol /L (136-145) Potassium 3.2 mmol/L L mmol /L (3.5-5.1) Chloride 95 mmol/L L mmol/ L (98-107) Carbon Dioxide 23 mmol/L mmol/L (22-29) Anion Gap 20.2 H (5-19) BUN 10 mg/dL mg/dL (8-23) Creatinine 1.3 mg/dL H mg/dL (0.7-1.2) GFR Calculation 55.1 mL/min L mL/ min (90-130) Glucose 105 mg/dL mg/dL (65-115) Calculated Osmolal ity 279 mOsm/kg L mOs m/kg (285-295) Calcium 8.8 mg/dL mg/dL (8.5-10.5) Total Bilirubin 0.9 mg/dL mg/dL (0.15-1.2) AST 38 U/L U/L (0-40) ALT 16 U/L U/L (0-41) Alkaline Phosphata se 75 IU/L IU/L (40-130) Troponin T Baselin e Troponin T 120 Min [place] Troponin T Total Protein 6.1 g/dL L g/dL (6.6-8.7) Albumin 3.9 g/dL g/dL (3.5-5.2) Globulin 2.2 g/dL g/dL (1.3-4.6) Urine Color Dark yellow (Yellow) Urine Appearance Hazy A (CLEAR) Urine pH 5 (5-7) Ur Specific Gravit y 1.020 (1.005-1.030) Urine Protein Trace (Negative) Urine Glucose (UA) Norm (Normal) Urine Ketones 1+ H (Negative) Urine Blood 2+ H (Negative) Urine Nitrate Negative (Negative) Urine Bilirubin 1+ H (Negative) Urine Urobilinogen 4 mg/dL H mg/dL (Negative) Ur Leukocyte Jenna ase Trace H (Negative) Urine RBC 5-10 /hpf H /hpf (0-2) Urine WBC 5-10 /hpf H /hpf (0-5) Ur Squamous Epith Cells 0-4 /hpf H /hpf (0-5) Calcium Oxalate Cr ystal 0-4 /hpf H /hpf Other Crystals 50 /hpf /hpf Amorphous Sediment Not Reportable Urine Bacteria Trace /hpf /hpf (NONE) Hyaline Casts 10-15 /lpf H /lpf Urine Mucus 3+ /hpf /hpf Urine Sperm 1+ /hpf /hpf Salicylates < 0.3 mg/dL L mg/ dL (3-10) Urine Opiates Scre en Acetaminophen < 5.0 ug/mL L ug/ mL (10-30) Ur Barbiturates Sc reen Ur Phencyclidine S crn Ur Amphetamines Sc reen U Benzodiazepines Scrn Urine Cocaine Scre en U Marijuana (THC) Screen Ethyl Alcohol < 10 mg/dL mg/dL (0-10) SARS-CoV-2 Ag (Rap id) 08/07/21 08/07/21 08/07/21 14:25 14:25 16:25 WBC RBC Hgb Hct MCV MCH MCHC RDW Plt Count MPV Neut % (Auto) Lymph % (Auto) Norman % (Auto) Eos % (Auto) Baso % (Auto) Neut # (Auto) Lymph # (Auto) Norman # (Auto) Eos # (Auto) Baso # (Auto) Nucleated RBC % (a uto) Nucleated RBCs # Sodium Potassium Chloride Carbon Dioxide Anion Gap BUN Creatinine GFR Calculation Glucose Calculated Osmolal ity Calcium Total Bilirubin AST ALT Alkaline Phosphata se Troponin T Baselin e 21 ng/L H ng/L (0-15) Troponin T 120 Min [place] 19.80 ng/L H ng/L (0-15) Delta Troponin T -1.20 ABS# L ABS# (0-10) Total Protein Albumin Globulin Urine Color Urine Appearance Urine pH Ur Specific Gravit y Urine Protein Urine Glucose (UA) Urine Ketones Urine Blood Urine Nitrate Urine Bilirubin Urine Urobilinogen Ur Leukocyte Jenna ase Urine RBC Urine WBC Ur Squamous Epith Cells Calcium Oxalate Cr ystal Other Crystals Amorphous Sediment Urine Bacteria Hyaline Casts Urine Mucus Urine Sperm Salicylates Urine Opiates Scre en Negative ng/mL ng /mL (Negative) Acetaminophen Ur Barbiturates Sc reen Negative ng/mL ng /mL (Negative) Ur Phencyclidine S crn Negative ng/mL ng /mL (Negative) Ur Amphetamines Sc reen Positive ng/mL H ng/mL (Negative) U Benzodiazepines Scrn Positive ng/mL H ng/mL (Negative) Urine Cocaine Scre en Positive ng/mL H ng/mL (Negative) U Marijuana (THC) Screen Positive ng/mL H ng/mL (Negative) Ethyl Alcohol SARS-CoV-2 Ag (Rap id) 08/07/21 08/11/21 08/11/21 17:10 00:38 00:44 WBC 3.2 10^3/uL L 10^ 3/uL (4.0-10.0) RBC 3.88 10^6/uL L 10 ^6/uL (4.1-5.3) Hgb 12.1 g/dL g/dL (11.7-16.6) Hct 36.1 % L % (42.0-52.0) MCV 93.0 fl fl (80-94) MCH 31.2 pg pg (28.0-34.0) MCHC 33.5 g/dL g/dL (30.0-36.0) RDW 12.9 % % (12.1-15.1) Plt Count 109 10^3/cmm L 10 ^3/cmm (130-400) MPV 11.1 fL H fL (7.4-10.4) Neut % (Auto) 59.0 % % Lymph % (Auto) 23.8 % % Norman % (Auto) 15.1 % % Eos % (Auto) 1.2 % % Baso % (Auto) 0.6 % % Neut # (Auto) 1.91 10^3/uL 10^3 /uL (1.8-7.7) Lymph # (Auto) 0.8 10^3/uL 10^3/ uL (0.8-4.8) Norman # (Auto) 0.5 10^3/uL 10^3/ uL (0.2-0.9) Eos # (Auto) 0.0 10^3/uL 10^3/ uL (0.0-0.8) Baso # (Auto) 0.0 10^3/uL 10^3/ uL (0.0-0.1) Nucleated RBC % (a uto) 0 % % Nucleated RBCs # 0.0 /100WBC /100W BC Sodium Potassium Chloride Carbon Dioxide Anion Gap BUN Creatinine GFR Calculation Glucose Calculated Osmolal ity Calcium Total Bilirubin AST ALT Alkaline Phosphata se Troponin T Baselin e Troponin T 120 Min [place] Troponin T Total Protein Albumin Globulin Urine Color Urine Appearance Urine pH Ur Specific Gravit y Urine Protein Urine Glucose (UA) Urine Ketones Urine Blood Urine Nitrate Urine Bilirubin Urine Urobilinogen Ur Leukocyte Jenna ase Urine RBC Urine WBC Ur Squamous Epith Cells Calcium Oxalate Cr ystal Other Crystals Amorphous Sediment Urine Bacteria Hyaline Casts Urine Mucus Urine Sperm Salicylates Urine Opiates Scre en Acetaminophen Ur Barbiturates Sc reen Ur Phencyclidine S crn Ur Amphetamines Sc reen U Benzodiazepines Scrn Urine Cocaine Scre en U Marijuana (THC) Screen Ethyl Alcohol SARS-CoV-2 Ag (Rap id) Negative Negative (Negative) (Negative) 08/11/21 08/11/21 08/11/21 00:44 01:15 01:15 WBC RBC Hgb Hct MCV MCH MCHC RDW Plt Count MPV Neut % (Auto) Lymph % (Auto) [place] % (Auto) Eos % (Auto) Baso % (Auto) Neut # (Auto) Lymph # (Auto) Norman # (Auto) Eos # (Auto) Baso # (Auto) Nucleated RBC % (a uto) Nucleated RBCs # Sodium 135 mmol/L L mmol /L (136-145) Potassium 3.1 mmol/L L mmol /L (3.5-5.1) Chloride 98 mmol/L mmol/L (98-107) Carbon Dioxide 27 mmol/L mmol/L (22-29) Anion Gap 13.1 (5-19) BUN 12 mg/dL mg/dL (8-23) Creatinine 0.9 mg/dL mg/dL (0.7-1.2) GFR Calculation 84.2 mL/min L mL/ min (90-130) Glucose 166 mg/dL H mg/dL (65-115) Calculated Osmolal ity 284 mOsm/kg L mOs m/kg (285-295) Calcium 7.8 mg/dL L mg/dL (8.5-10.5) Total Bilirubin 0.4 mg/dL mg/dL (0.15-1.2) AST 53 U/L H U/L (0-40) ALT 33 U/L U/L (0-41) Alkaline Phosphata se 70 IU/L IU/L (40-130) Troponin T Baselin e Troponin T 120 Min [place] Troponin T Total Protein 5.6 g/dL L g/dL (6.6-8.7) Albumin 3.5 g/dL g/dL (3.5-5.2) Globulin 2.1 g/dL g/dL (1.3-4.6) Urine Color Yellow (Yellow) Urine Appearance Clear (CLEAR) Urine pH 5 (5-7) Ur Specific Gravit y 1.020 (1.005-1.030) Urine Protein Neg (Negative) Urine Glucose (UA) Norm (Normal) Urine Ketones Negative (Negative) Urine Blood 2+ H (Negative) Urine Nitrate Negative (Negative) Urine Bilirubin Neg (Negative) Urine Urobilinogen 1 mg/dL H mg/dL (Negative) Ur Leukocyte Jenna ase Negative (Negative) Urine RBC Rare /hpf /hpf (0-2) Urine WBC None /hpf /hpf (0-5) Ur Squamous Epith Cells Rare /hpf /hpf (0-5) Calcium Oxalate Cr ystal Other Crystals Amorphous Sediment Not Reportable Urine Bacteria Trace /hpf /hpf (NONE) Hyaline Casts Rare /lpf /lpf Urine Mucus Trace /hpf /hpf Urine Sperm Salicylates < 0.3 mg/dL L mg/ dL (3-10) Urine Opiates Scre en Negative ng/mL ng /mL (Negative) Acetaminophen < 5.0 ug/mL L ug/ mL (10-30) Ur Barbiturates Sc reen Negative ng/mL ng /mL (Negative) Ur Phencyclidine S crn Negative ng/mL ng /mL (Negative) Ur Amphetamines Sc reen Positive ng/mL H ng/mL (Negative) U Benzodiazepines Scrn Positive ng/mL H ng/mL (Negative) Urine Cocaine Scre en Negative ng/mL ng /mL (Negative) U Marijuana (THC) Screen Positive ng/mL H ng/mL (Negative) Ethyl Alcohol < 10 mg/dL mg/dL (0-10) SARS-CoV-2 Ag (Rap id) Discharge Plan Discharge Patient Disposition: Xfer [facility]osp Clinical Impression: Acute psychosis, Drug-induced psychotic disorder, Atrial fibrillation Referrals: Tova Ireland MD [Primary Care Provider] - Sign Out Sign Out Data: Patient Sign Out occurred on 08/08/21 at 07:07. Patient's care was discussed, and care was transferred from to Jayro Alvarado DO. Coding Level of Care Code ED Dental Laboratory Supervisor for Chg Fwd Exam Comprehensive
[2021-08-07 14:35] LABS: Basophils % 0.4 %; Eosinophils % 0.4 %; Hemoglobin 12.8 g/dL (11.7-16.6); Lymphocytes # 0.9 10^3/uL (0.8-4.8); Lymphocytes % 18.3 %; Mean Corpuscular HGB Conc 32.8 g/dL (30.0-36.0); Mean Corpuscular Hemoglobin 30.8 pg (28.0-34.0); Mean Platelet Volume 11.5 fL (7.4-10.4); Monocytes # 0.5 10^3/uL (0.2-0.9); Monocytes % 10.1 %; Neutrophils # 3.44 10^3/uL (1.8-7.7); Neutrophils % 70.6 %; Nucleated Red Blood Cells % 0 %; Platelet Count 101 10^3/cmm (130-400); Red Blood Count 4.15 10^6/uL (4.1-5.3); Red Cell Distribution Width 12.4 % (12.1-15.1); White Blood Count 4.9 10^3/uL (4.0-10.0)
--- NOTE | 2021-08-07 14:41 | PC.NURSE ---
INFORMED DR. DOWELL OF HR OF 135BPM VERBALIZED UNDERSTANDING NO FURTHER ORDERS.
[2021-08-07 14:44] LABS: Amphetamines Screen Urine Positive (Negative); Barbiturates Screen Urine Negative (Negative); Benzodiazepines Screen Urine Positive (Negative); Cocaine Screen Urine Positive (Negative); Opiate Screen Urine Negative (Negative); PCP Screen Urine Negative (Negative); THC Screen Urine Positive (Negative)
[2021-08-07 14:48] LABS: Add Urine Microscopic? YES; Bilirubin Urine 1+ (Negative); Blood Urine 2+ (Negative); Glucose Urine UA Norm (Normal); Ketones Urine 1+ (Negative); Leukocyte Esterase Urine Trace (Negative); Nitrate Urine Negative (Negative); Protein Urine Trace (Negative); Urine Appearance Hazy (CLEAR); Urine Color Dark Yellow (Yellow); Urobilinogen Urine 4 mg/dL (Negative); pH Urine 5 (5-7)
[2021-08-07 14:49] LABS: Bacteria Urine TRACE /hpf; Calcium Oxalate Crystals Urine 0-4 /hpf; Mucus Urine 3+ /hpf; Sperm Urine 1+ /hpf; Squamous Epithelial Cell Urine 0-4 /hpf (0-5)
[2021-08-07 14:50] LABS: Other Crystals Urine 50 /hpf
[2021-08-07 14:51] LABS: Add Urine Culture? No; Alanine Aminotransferase 16 U/L (0-41); Albumin Level 3.9 g/dL (3.5-5.2); Alkaline Phosphatase 75 IU/L (40-130); Anion Gap 20.2 (5-19); Aspartate Amino Transferase 38 U/L (0-40); Blood Urea Nitrogen 10 mg/dL (8-23); Calcium 8.8 mg/dL (8.5-10.5); Carbon Dioxide 23 mmol/L (22-29); Chloride 95 mmol/L (98-107); Globulin 2.2 g/dL (1.3-4.6); Glomerular Filtration Rate 55.1 mL/min (90-130); Glucose 105 mg/dL (65-115); Osmolality Calculated 279 mOsm/kg (285-295); Potassium 3.2 mmol/L (3.5-5.1); Sodium 135 mmol/L (136-145); Total Bilirubin 0.9 mg/dL (0.15-1.2); Total Protein 6.1 g/dL (6.6-8.7)
[2021-08-07 14:54] LABS: Acetaminophen < 5.0 ug/mL (10-30); Alcohol Level < 10 mg/dL (0-10); Salicylate < 0.3 mg/dL (3-10)
--- NOTE | 2021-08-07 15:59 | ECG_ITS ---
[facility] Test Date: 2021-08-07 Pat Name: Merritt Lima Department: Room: Gender: Male Gold Letterer: : 1955 Requested By: Jayro Woo Order Number: [id number] Garret MD: Hermila Gong M.D. Measurements Intervals [place] Rate: 109 P: [place]: QRS: -40 QRSD: 92 T: 66 QT: 330 QTc: 446 Interpretive Statements ATRIAL FIBRILLATION WITH RAPID VENTRICULAR RESPONSE LEFT AXIS DEVIATION [QRS AXIS < -30] ANTEROSEPTAL MYOCARDIAL INFARCTION , OF INDETERMINATE AGE [40+ ms Q WAVE IN V1-V4] INTERPRETATION BASED ON A DEFAULT AGE OF 40 YEARS Compared to ECG 08/04/2021 18:22:04 Left-axis deviation now present Incomplete right bundle-branch block no longer present Left anterior fascicular block no longer present Myocardial infarct finding still present Electronically Signed On 08-07-2021 17:54:48 FILTER BED PLACER by Hermila Gong M.D. [email or web address] [email or web address] medical [facility], avonRightware Oy/store/[id number]
--- NOTE | 2021-08-07 16:08 | PC.PHAR ---
pt verified some of his medications-medications entered are med[facility] and what the pt states he takes
[2021-08-07 16:32] LABS: Troponin(5th) Baseline 21 ng/L (0-15)
--- NOTE | 2021-08-07 17:59 | ECG_ITS ---
[facility] Test Date: 2021-08-07 Pat Name: Merritt Lima Department: Room: Gender: Male Senior Telecommunications Engineer: : 1955 Requested By: Jayro Woo Order Number: [id number] Garret MD: Babs Hernández M.D. Measurements Intervals [place] Rate: 105 P: 244 MN: 178 QRS: -32 QRSD: 95 T: 58 QT: 352 QTc: 466 Interpretive Statements ATRIAL FIBRILLATION WITH RAPID VENTRICULAR RESPONSE LEFT AXIS DEVIATION [QRS AXIS < -30] ANTEROSEPTAL MYOCARDIAL INFARCTION , OF INDETERMINATE AGE [40+ ms Q WAVE IN V1-V4] Compared to ECG 08/07/2021 19:32:59 Ventricular premature complex(es) now present Atrial fibrillation no longer present Myocardial infarct finding still present Electronically Signed On 08-11-2021 5:30:43 LOGGER ALL ROUND by Babs Hernández M.D. [id number]
[2021-08-07 18:02] LABS: SARS Covid-2 Antigen Negative (Negative)
--- NOTE | 2021-08-07 19:19 | PC.NURSE ---
REPORT GIVEN TO DUNIA BARKER ASSUMED CARE
[2021-08-07] MEDS: OLANZapine 10 mg ODT PO (20:20)
--- NOTE | 2021-08-07 21:59 | ECG_ITS ---
[facility] Test Date: 2021-08-07 Pat Name: Merritt Lima Department: Room: Gender: Male Recreation Leader: : 1955 Requested By: Jayro Woo Order Number: [id number] Garret MD: Babs Hernández M.D. Measurements Intervals [place] Rate: 120 P: [place]: QRS: -38 QRSD: 93 T: 61 QT: 315 QTc: 446 Interpretive Statements ATRIAL FIBRILLATION WITH RAPID VENTRICULAR RESPONSE LEFT AXIS DEVIATION [QRS AXIS < -30] ANTEROSEPTAL MYOCARDIAL INFARCTION , PROBABLY OLD [40+ ms Q WAVE IN V1-V4] Compared to ECG 08/07/2021 17:17:40 No significant changes Electronically Signed On 08-09-2021 8:36:03 MEDICAL PHOTOGRAPHER by Babs Hernández M.D. [id number]
[2021-08-08] VITALS (9 sets, daily range): BP systolic 112–151; BP diastolic 61–104; PULSE 96–115; RESP 18–28; O2SAT 96–99
[2021-08-08] MEDS: potassium chloride ER 20 mEq Tablet 40 MEQ PO (05:35)
[2021-08-08] MEDS: metoprolol tartrate 50 mg Tablet PO (05:45)
[2021-08-08] MEDS: nicotine 21 mg Patch 1 PATCH TRANSDERMA (20:30)
[2021-08-08] MEDS: OLANZapine 10 mg ODT 20 MG PO (20:30)
--- NOTE | 2021-08-08 20:55 | PC.NURSE ---
Pt. seems to be very anxious. Pt. was moved from room 13 to room 9 in order to make room for incoming patients. Pt. seems to have taken this move as a sign that we are going to do something to him . Pt. is very anxious. Pt. has been given medications to help calm him.
[2021-08-08] MEDS: ziprasidone 20 mg/mL SDV IM (23:43)
[2021-08-08] MEDS: LORazepam 2 mg/mL INJ 1 mL IM (23:43)
--- NOTE | 2021-08-08 23:43 | PC.NURSE ---
Pt. got out of bed and became very anxious and started trying to run out of the room shoving me and staff out of the way. Pt. was placed back in bed by staff and given sedatives to calm him. Pt. is resting in bed.
[2021-08-09 02:42] VITALS: BP 147/78; PULSE 108; RESP 18; O2SAT 96
[2021-08-09 04:01] VITALS: BP 161/109; PULSE 124; RESP 18; O2SAT 98
[2021-08-09 10:00] VITALS: BP 132/67; PULSE 110; RESP 18; O2SAT 100
[2021-08-09 15:44] VITALS: BP 151/99; PULSE 124; RESP 18; O2SAT 96
--- NOTE | 2021-08-09 19:57 | PC.NURSE ---
this nurse rounded on pt. pt stated he hadn't eatne anything from his tray yet. this nurse left his tray in room.
[2021-08-09 21:41] VITALS: BP 160/102; PULSE 104; RESP 18; TEMP 36.8; O2SAT 99
[2021-08-10 05:03] VITALS: BP 154/100; PULSE 105; RESP 18; O2SAT 98
[2021-08-10] MEDS: pantoprazole DR 40 mg Tablet PO (08:37)
[2021-08-10] MEDS: thiamine 100 mg Tablet PO (08:37)
[2021-08-10] MEDS: apixaban 5 mg Tablet PO ×2 (08:37→22:43)
[2021-08-10] MEDS: metoprolol succinate ER (24 HR) 50 mg Tablet PO (08:37)
[2021-08-10] MEDS: folic acid 1 mg Tablet PO (08:37)
[2021-08-10 08:40] VITALS: BP 153/96; PULSE 75; RESP 14; TEMP 36.6; O2SAT 99
[2021-08-10] MEDS: cetirizine 10 mg Tablet PO (08:44)
[2021-08-10] MEDS: cholecalciferol (vitamin D3) 1,000 unit Tablet 1000 UNIT PO (08:44)
[2021-08-10 13:00] VITALS: BP 122/75; PULSE 92; RESP 20; TEMP 37; O2SAT 99
--- NOTE | 2021-08-10 14:36 | W.PM.PSYCONS ---
Providers/Reason for Consult Consulting Physican/Specialty*: Tristin Dillard MD. Psychiatry. Reason for Consult*: Evaluation for continued need for inpatient services. Requesting Physcian: Jayro Alvarado Primary Care Provider: Tova Ireland MD Psych Consult HPI History of Present Illness Merritt Lima is a 65 year old male who presented to the emergency department the following report: Chief Complaint: Psychiatric Symptoms Stated Complaint: SUBSTANCE ABUSE/ HALLUCINATIONS Time Seen by Provider: 08/07/21 13:50 History of Present Illness: HPI Narrative: 65-year-old male presents emergency room via EMS. He was called by family and neighbors he was having hallucinations auditory and visual outside of his home. He admits to having been using methamphetamines and drinking alcohol has been using methamphetamines a couple of times since he was last here. He repeatedly denies any suicidal or homicidal ideation. He states he wants to quit using mass. complaint: feels depressed Onset (ago): day(s) Duration: constant History of same: Yes Relieving factors: none Exacerbating factors: alcohol and drug use Associated symptoms: Reports auditory hallucinations and visual hallucinations; Deny homicidal ideation or suicidal ideation Treatments prior to arrival: none. He was struggling with altered mental status initially with his intoxication but with some increase in mental clarity a psychiatric consult requested to determine whether hospitalization was still necessary. Patient presents today reporting that he had been without significant psychiatric history but did report that there was some difficulties with addiction specifically alcohol in the past. He reports however that he had been doing much better but that the of a significant person in his life led to him drinking heavily which led to him presenting to the hospital. He reports that he has struggled with things starting to get out of control and that he wants to stop drinking but is unsure if he can do it by himself and fearful that he might act on some of the thoughts he is having given his family history. He endorsed that his father committed suicide and that he has had low moments where he has also contemplated taking his life. He reports feeling very driven to get his thinking back under control and reports that there is a place in [place] that he had success at before and believes he can go back to to try to get things back under control. He endorsed a willingness however to go anywhere. He also gave the name of his therapist at the [place] who he reports might be able to assist him in getting into some [facility] resources as well. He reported a lot of his difficulties are related to the isolation that he currently has. His friend that was a great support of his. PFSH NPU PFSH: Medical History (Updated 08/23/21 @ 18:24 by Tristin Dillard MD) Alcohol abuse Atrial fibrillation Diabetes Hyperlipidemia Hypertension Major depression PTSD (post-traumatic stress disorder) SOB (shortness of breath) Tobacco abuse Surgical History H/O neck surgery Family History Father Cancer Lung disease TB Suicide Mother Dementia Lung disease TB Family/Other Diabetes Grandmother Stroke Denies family history of CAD (coronary artery disease) Clotting disorder Chronic kidney disease (CKD) Anesthesia complication Bleeding disorder Social History Smoking and tobacco status: current every day smoker Alcohol intake: current Mental Status Exam MSE Comments: This is a well-nourished well-developed elderly white male with hospital scrubs on with limited grooming but adequate eye contact. No abnormal movements except for mild psychomotor retardation. Cooperative with exam in no acute distress. Speech was decreased rate and volume. Mood described as down, affect congruent. Thought process organized. Thought content: Patient endorsed suicidal ideation but denied homicidal ideation, there were no delusions reported or noted, he denied any auditory or visual hallucinations. Attention and concentration were intact and memory appeared reliable but none were formally tested. He is alert and oriented x3. Insight and judgment appear limited impulse control is impaired. Vitals/I&O/Wt Last Vital Signs Temp 98.6 F 08/10/21 13:00 Pulse 92 08/10/21 13:00 Resp 20 H 08/10/21 13:00 BP 125/75 08/10/21 13:00 Pulse Ox 99 08/10/21 13:00 A&P Assessment and plan (1) Suicidal ideation: Status: Acute (2) Depression: Status: Acute (3) PTSD (post-traumatic stress disorder): Status: Acute (4) Smoking addiction: Status: Acute (5) SOB (shortness of breath): Status: Acute (6) Diabetes: Status: Acute Qualifiers: Diabetes mellitus type: type 2 Diabetes mellitus [facility] insulin use: without leather goods i assembler use Diabetes mellitus complication status: with hyperglycemia Qualified Code(s): E11.65 - Type 2 diabetes mellitus with hyperglycemia (7) Hypertension: Status: Acute Qualifiers: Hypertension type: essential hypertension Qualified Code(s): I10 - Essential (primary) hypertension (8) Hyperlipidemia: Status: Acute Qualifiers: Hyperlipidemia type: mixed hyperlipidemia Qualified Code(s): E78.2 - Mixed hyperlipidemia (9) Atrial fibrillation: Status: Acute Additional A&P Information This is a 65-year-old white male with a long history of addiction and medical in for mental health and paternal suicide who presents with a relapse on alcohol and suicidal ideation without significant supports in the community. 1. Patient continues to have suicidal thoughts even though his mental status has improved. 2. Agree with continued referral to inpatient services 3. We will evaluate for continued necessity for inpatient services if he does not get placed [facility] N/A. Please see primary provider note for medical necessity but agree with need for inpatient mental health versus drug and alcohol services. Coding Level of Care Code Acute Etl Database Developer for [facility] Fwd Diagnoses Suicidal ideation R45.851 Depression F32.A PTSD (post-traumatic stress disorder) F43.10 Smoking addiction F17.200 SOB (shortness of breath) R06.02 Diabetes E11.65 Diabetes mellitus type: type 2 Diabetes mellitus leather goods i assembler insulin use: without [facility] use Diabetes mellitus complication status: with hyperglycemia Hypertension I10 Hypertension type: essential hypertension Hyperlipidemia E78.2 Hyperlipidemia type: mixed hyperlipidemia Atrial fibrillation I48.91
[2021-08-10 21:45] VITALS: BP 176/104; PULSE 125; RESP 18; O2SAT 97
[2021-08-10] MEDS: atorvastatin 40 mg Tablet PO (22:43)
[2021-08-10] MEDS: OLANZapine 10 mg TABLET 20 MG PO (22:43)
[2021-08-11] VITALS (7 sets, daily range): BP systolic 127–151; BP diastolic 77–98; PULSE 93–132; RESP 18–22; O2SAT 93–98
--- NOTE | 2021-08-11 00:29 | ECG_ITS ---
[facility] Test Date: 2021-08-11 Pat Name: Merritt Lima Department: Room: Gender: Male Cut File Clerk: : 1955 Requested By: Arley Baldwin Order Number: [id number] Garret MD: Hermila Gong M.D. Measurements Intervals [place] Rate: 108 P: [place]: QRS: -39 QRSD: 90 T: 65 QT: 305 QTc: 410 Interpretive Statements ATRIAL FIBRILLATION WITH RAPID VENTRICULAR RESPONSE LEFT AXIS DEVIATION [QRS AXIS < -30] SEPTAL MYOCARDIAL INFARCTION , PROBABLY OLD [40+ ms Q WAVE IN V1/V2] Compared to ECG 08/07/2021 22:19:38 Sinus tachycardia no longer present Ventricular premature complex(es) no longer present Myocardial infarct finding still present Electronically Signed On 08-12-2021 19:52:21 DIRECTOR OF AVIATION by Hermila Gong M.D. [email or web address] Defence [email or web address] [id number]
[2021-08-11 01:03] LABS: Basophils % 0.6 %; Eosinophils % 1.2 %; Hematocrit 36.1 % (42.0-52.0); Hemoglobin 12.1 g/dL (11.7-16.6); Lymphocytes # 0.8 10^3/uL (0.8-4.8); Lymphocytes % 23.8 %; Mean Corpuscular HGB Conc 33.5 g/dL (30.0-36.0); Mean Corpuscular Hemoglobin 31.2 pg (28.0-34.0); Mean Platelet Volume 11.1 fL (7.4-10.4); Monocytes # 0.5 10^3/uL (0.2-0.9); Monocytes % 15.1 %; Neutrophils # 1.91 10^3/uL (1.8-7.7); Nucleated Red Blood Cells % 0 %; Platelet Count 109 10^3/cmm (130-400); Red Blood Count 3.88 10^6/uL (4.1-5.3); Red Cell Distribution Width 12.9 % (12.1-15.1); White Blood Count 3.2 10^3/uL (4.0-10.0)
[2021-08-11 01:21] LABS: Alanine Aminotransferase 33 U/L (0-41); Albumin Level 3.5 g/dL (3.5-5.2); Alkaline Phosphatase 70 IU/L (40-130); Anion Gap 13.1 (5-19); Aspartate Amino Transferase 53 U/L (0-40); Blood Urea Nitrogen 12 mg/dL (8-23); Calcium 7.8 mg/dL (8.5-10.5); Carbon Dioxide 27 mmol/L (22-29); Chloride 98 mmol/L (98-107); Globulin 2.1 g/dL (1.3-4.6); Glomerular Filtration Rate 84.2 mL/min (90-130); Glucose 166 mg/dL (65-115); Osmolality Calculated 284 mOsm/kg (285-295); Potassium 3.1 mmol/L (3.5-5.1); Sodium 135 mmol/L (136-145); Total Bilirubin 0.4 mg/dL (0.15-1.2); Total Protein 5.6 g/dL (6.6-8.7)
[2021-08-11 01:25] LABS: SARS Covid-2 Antigen Negative (Negative)
[2021-08-11 01:25] LABS: Acetaminophen < 5.0 ug/mL (10-30); Alcohol Level < 10 mg/dL (0-10); Salicylate < 0.3 mg/dL (3-10)
[2021-08-11 01:29] LABS: Add Urine Microscopic? YES; Bilirubin Urine Neg (Negative); Blood Urine 2+ (Negative); Glucose Urine UA Norm (Normal); Ketones Urine Negative (Negative); Leukocyte Esterase Urine Negative (Negative); Nitrate Urine Negative (Negative); Protein Urine Neg (Negative); RBC Urine RARE /hpf (0-2); Squamous Epithelial Cell Urine RARE /hpf (0-5); Urine Appearance Clear (CLEAR); Urine Color Yellow (Yellow); Urobilinogen Urine 1 mg/dL (Negative); pH Urine 5 (5-7)
[2021-08-11 01:30] LABS: Amphetamines Screen Urine Positive (Negative); Bacteria Urine TRACE /hpf; Barbiturates Screen Urine Negative (Negative); Benzodiazepines Screen Urine Positive (Negative); Cocaine Screen Urine Negative (Negative); Hyaline Casts Urine RARE /lpf; Mucus Urine TRACE /hpf; Opiate Screen Urine Negative (Negative); PCP Screen Urine Negative (Negative); THC Screen Urine Positive (Negative)
[2021-08-11] MEDS: metoprolol tartrate 1 mg/1 mL SDV 5 mL 2.5 MG IVP (02:24)
[2021-08-11] MEDS: potassium chloride ER 20 mEq Tablet 60 MEQ PO (03:13)
[2021-08-11] MEDS: metoprolol tartrate 1 mg/1 mL SDV 5 mL 5 MG IVP (05:53)
[2021-08-11] MEDS: metoprolol succinate ER (24 HR) 50 mg Tablet 75 MG PO (08:20)
[2021-08-11] MEDS: folic acid 1 mg Tablet PO (08:38)
[2021-08-11] MEDS: cholecalciferol (vitamin D3) 1,000 unit Tablet 1000 UNIT PO (08:38)
[2021-08-11] MEDS: thiamine 100 mg Tablet PO (08:38)
[2021-08-11] MEDS: apixaban 5 mg Tablet PO (08:38)
[2021-08-11] MEDS: pantoprazole DR 40 mg Tablet PO (08:38)
[2021-08-11] MEDS: cetirizine 10 mg Tablet PO (08:39)
--- NOTE | 2021-08-11 08:45 | PC.NURSE ---
PT GIVEN 0900 MEDS, URINAL FOR URINATION. pT A&OX4, CALM AND COOPERATIVE. PT CONGESTED, GIVEN ZYRTEC. ONLY PT COMPLAINT WAS BEING IN HIS ROOM FOR SO LONG. PT BEING TRANSFERRED TO [facility].
--- NOTE | 2021-08-11 11:02 | PC.NURSE ---
REPORT CALLED TO LORETTA BARKER AT [facility], WHEN ADVISED PATIENT OF TRANSFER HE STATES HE IS NOT READY TO GO, NEEDS TO GO HOME, PAY BILLS, AND TAKE CARE OF DOG, PATIENT STATES HE WANTED TO GO TO [facility] TO MT, PT IS ON A 96 HR HOLD
--- NOTE | 2021-08-11 12:01 | PC.NURSE ---
REPORT GIVEN TO EMS, PATIENT IS BEING TRANSFERRED TO [facility] IN [place], IV REMOVED, PT HARRISON WE[facility], CATH INTACT.
== END 2021-08-11 12:05 ==
PROVIDERS: Emergency Medicine; Emergency Provider Family Medicine; PCP Family Medicine
DX: F19.959 Other psychoactive substance use, unspecified with psychoactive substance-induced psychotic disorder, unspecified (principal); I48.91 Unspecified atrial fibrillation; E11.9 Type 2 diabetes mellitus without complications; E78.5 Hyperlipidemia, unspecified; I10 Essential (primary) hypertension; F17.210 Nicotine dependence, cigarettes, uncomplicated; Z20.822 Contact with and (suspected) exposure to COVID-19
CPT/HCPCS: 36415; 80053; 80306; 80307; 81001; 84484; 85025; 87426; 93005; 96372; 96374; 96376; 99285; J2060; J3490

== ENCOUNTER → 2023-05-02 09:32 | Outpatient (BNVA) | payer OTHER, SELFPAY | PROVIDERS: PCP Family Medicine; Visit Provider Podiatrist Foot & Ankle Surgery | DX: L60.3 Nail dystrophy (principal); I73.9 Peripheral vascular disease, unspecified; Z86.39 Personal history of other endocrine, nutritional and metabolic disease; M21.6X1 Other acquired deformities of right foot; M21.6X2 Other acquired deformities of left foot | CPT/HCPCS: 11721; 99203 ==

== ENCOUNTER → 2024-04-18 14:58 | Outpatient (BNVA) | payer OTHER, SELFPAY | PROVIDERS: PCP Family Medicine; Visit Provider Internal Medicine Cardiovascular Disease | DX: I48.19 Other persistent atrial fibrillation (principal); E78.2 Mixed hyperlipidemia; I10 Essential (primary) hypertension; F17.200 Nicotine dependence, unspecified, uncomplicated; F43.10 Post-traumatic stress disorder, unspecified | CPT/HCPCS: 99204 ==

== ENCOUNTER 2025-06-25 10:01 | Emergency (ER) | payer OTHER, SELFPAY ==
[2025-06-25] VITALS (20 sets, daily range): BP systolic 130–167; BP diastolic 73–133; PULSE 83–115; RESP 18; TEMP 36.2–36.4; O2SAT 93–98; BMI 24.4
--- NOTE | 2025-06-25 10:15 | XRR_ITS ---
PROCEDURE INFORMATION: Exam: XR Left Hand Exam date and time: 06/25/2025 10:17 AM Age: 69 years old Clinical indication: Injury or trauma; Fall; Blunt trauma (contusions or hematomas); Hand; Left; Additional info: Distal third digit injury TECHNIQUE: Imaging protocol: Radiologic exam of the left hand. Views: 3 or more views. COMPARISON: CR XR hand LT min 3V* [id number] 04/04/2021 4:07 PM FINDINGS: Bones/joints: Comminuted moderately displaced fracture through the base of the 3rd distal phalanx. No other osseous or joint abnormality. Soft tissues: Normal. XR/XR hand LT min 3V* [id number] IMPRESSION: Fracture of the 3rd finger.
--- NOTE | 2025-06-25 10:15 | W.ED.EXTPRO ---
HPI - Extremity Problem General: Chief complaint: Extremity Injury, Upper Stated complaint: left middle finger injury Time Seen by Provider: 06/25/25 10:15 History of Present Illness: 69-year-old man with a history of diabetes, alcohol abuse, hypertension, hyperlipidemia, PTSD, A-fib and anticoagulation on Eliquis who presents to the emergency room with a finger injury. He fell and hit his finger on a dresser last night. He has a laceration and possibly a mild deformity at the distal joint on his third finger of his right hand. He is unsure when his last tetanus shot was no other injury. He says pain radiates up his arm Related Data Home Medications ?Medication ?Instructions ?Recorded ?Confirmed apixaban 5 mg tablet (Eliquis) 5 mg PO BID 05/07/20 01/21/25 folic acid 1 mg tablet 2 mg PO DAILY 05/07/20 01/21/25 metoprolol tartrate 50 mg tablet 50 mg PO BID 05/07/20 01/21/25 nitroglycerin 0.4 mg sublingual 0.4 mg sublingual Q5M PRN Chest 05/07/20 01/21/25 tablet (Nitrostat) Pain pantoprazole 40 mg tablet,delayed 40 mg PO DAILY 05/07/20 01/21/25 release rosuvastatin 5 mg tablet 5 mg PO DAILY 05/07/20 01/21/25 thiamine HCl (vitamin B1) 100 mg 100 mg PO DAILY 05/07/20 01/21/25 tablet cetirizine 10 mg capsule (All Day 10 mg PO DAILY 11/20/20 01/21/25 Allergy (cetirizine)) cholecalciferol (vitamin D3) 50 100 mcg PO DAILY 08/07/21 01/21/25 mcg (2,000 unit) tablet (Vitamin D3) cyanocobalamin (vitamin B-12) 1,000 mcg IM Q30D 08/07/21 01/21/25 1,000 mcg/mL injection solution Previous Rx's ?Medication ?Instructions ?Recorded ciclopirox 8 % topical solution 1 applic topical DAILY 48 weeks 05/02/23 #6.6 mL Allergies Allergy/AdvReac Type Severity Reaction Status Date / Time Iodinated Contrast Media Allergy Hives Verified 06/25/25 10:11 levofloxacin (From Levaquin) Allergy allergy is Verified 06/25/25 10:11 on [place] Review of Systems Narrative: Constitutional symptoms: Negative except as documented in HPI. Skin symptoms: Negative except as documented in HPI. Eye symptoms: Negative except as documented in HPI. ENMT symptoms: Negative except as documented in HPI. Respiratory symptoms: Negative except as documented in HPI. Cardiovascular symptoms: Negative except as documented in HPI. Gastrointestinal symptoms: Negative except as documented in HPI. Genitourinary symptoms: Negative except as documented in HPI. Musculoskeletal symptoms: Negative except as documented in HPI. Neurologic symptoms: Negative except as documented in HPI. Psychiatric symptoms: Negative except as documented in HPI. Endocrine symptoms: Negative except as documented in HPI. PFSH ED PFSH: Medical History (Updated 06/25/25 @ 12:45 by Allison Cuba MD) SOB (shortness of breath) Diabetes Alcohol abuse Major depression Hypertension Hyperlipidemia PTSD (post-traumatic stress disorder) Atrial fibrillation Tobacco abuse Surgical History H/O neck surgery Family History Father Cancer Lung disease TB Suicide Mother Dementia Lung disease TB Family/Other Diabetes Grandmother Stroke Denies family history of CAD (coronary artery disease) Clotting disorder Chronic kidney disease (CKD) Anesthesia complication Bleeding disorder Social History Smoking and tobacco/nicotine status: current every day tobacco/nicotine user Alcohol intake: current Substance/Drug Use: former Date of last use: unknown Physical Exam Narrative: EXAM NARRATIVE: General: Alert, no acute distress. Skin: warm and dry Head: Normocephalic Neck: Trachea midline Eye: Extraocular movements are intact. Ears, nose, mouth and throat: Oral mucosa moist Respiratory: Respirations are non-labored Musculoskeletal: Right middle finger with laceration and deformity as seen in picture below Gastrointestinal: Abdomen does not appear distended Neurological: Alert and oriented, No focal neurological deficit observed. Psychiatric: Cooperative, appropriate mood & affect. Course Vital Signs: Vital signs: Vital Signs Temperature 97.1 F L 06/25/25 10:03 Pulse Rate 95 06/25/25 12:05 Respiratory Rate 18 06/25/25 11:23 Blood Pressure 154/80 06/25/25 12:05 Pulse Oximetry 98 06/25/25 12:05 Oxygen Delivery Me thod Room Air 06/25/25 11:23 MDM - Extremity (Nontraumatic) Medical Decision Making Medical decision making Patient's reason for coming to the emergency room: Social determinants: I reviewed the patient's medical record. 69-year-old man with a history of diabetes, alcohol abuse, hypertension, hyperlipidemia, PTSD, A-fib and anticoagulation I reviewed the patient's current home meds Patient is on Eliquis Alternate historians: None Differential diagnosis including but not limited to and based on the above HPI, review of systems and physical exam: In this patient with a musculoskeletal extremity traumatic injury and x-ray is being ordered to rule out fractures and dislocations. Orders placed to evaluate differential diagnosis based on the above differential, HPI and physical exam X-ray of the left hand: Fracture of the third finger with some displacement. This was reviewed and interpreted by myself the emergency room physician. I also reviewed the radiology report. Consultation: I spoke with Dr. Jacobs is on-call for orthopedics. He is can to take the patient to the OR for pain. Assessment of risk: Level of risk: Moderate risk patient Hospitalization considerations: Patient is going to the OR Reexamination: Patient has remained stable. No increased work of breathing. No altered mental status. Assessment and plan: Open finger fracture ?Tetanus. IV pain medications. - Patient is going to the OR. He may go home after that. - Discussed findings and plan with patient. Answered any questions. - All imaging was reviewed and interpreted personally by myself, the ER physician. - Evaluation and treatment of this problem were appropriate in the emergency setting Lab Data Radiology Impressions Hand X-Ray 06/25/25 10:15 IMPRESSION: Fracture of the 3rd finger. All radiology interpretation(s) finalized by discharge Discharge Plan Discharge Patient Disposition: Placed in Observation Clinical Impression: Open finger fracture Coding Level of Care Code ED Signal Inspector for Ben Norris
[2025-06-25] MEDS: tetanus-dipt-pertussis 0.5 mL SDV IM (10:26)
[2025-06-25] MEDS: ondansetron 2 mg/ML SDV 2 mL 4 MG IVP (11:21)
[2025-06-25] MEDS: morphine 4 mg/mL SDV 1 mL IVP (11:21)
[2025-06-25] MEDS: ceFAZolin 2,000 mg SDV 2000 MG IVP (11:22)
--- NOTE | 2025-06-25 11:25 | PC.PHAR ---
Addendum entered by Martha Swift 06/25/25 12:50: Pt has not filled Eliquis 5 mg since 04/26/25 30ds Original Note: [facility] 06/25/25 11:21am
--- NOTE | 2025-06-25 12:58 | P.CONIM_ITS ---
<Statement entered by Silas Jacobs DO - 06/29/25 17:06> Reviewed agree with PAs assessment and plan. Patient sustained an injury to the left middle finger at the fingertip with a crush injury. This happened yesterday per the patient. Patient states he would require a taxi to get home and would not have anybody else around and as a result elects to proceed with doing any procedures under local only anesthesia. At this point in time reviewing of his injury he has a traumatic crush injury to the left middle finger at the distal phalanx with a three-part fracture at the DIP joint at the base of the distal phalanx of the left middle finger. Given the deformity there is nailbed injury I suspect as well as an open fracture of the fingertip. At this point in time we talked about his treatment options in detail as far as nonoperative and operative mention. We talked about the ins and outs procedure the risk benefits complication alternative surgical nonsurgical treatment options. Risk of surgery include but not limited to make it better, make it worse, injury to nerves vessels or tendons, decrease function of the fingertip, possible disruption and no further nail growth, nail deformity, infection, wound complications. Understanding risks with surgery and through shared decision making patient like to proceed with left middle finger irrigation debridement with possible nailbed repair and percutaneous pinning of the distal phalanx. This point in time for lower and risks of infection given the open and appears to be contaminated wound recommend going to the OR today patient looks proceed doing this under local only anesthesia given he does not have a ride home or anyone to stay with him. Through shared decision making patient like to receive surgical invention all questions been answered at this time. Will proceed with surgical intervention all questions answered at this time. Consent reviewed and signed with patient in the preoperative holding area. Silas Jacobs DO Orthopedic surgery Providers/Reason For Consult Consulting Physician/Specialty*: Dr. Reynaldo DO/orthopedic surgeon Reason for Consult*: Left middle finger open fracture Requesting Physician: Dr. Cuba/emergency department Primary Care Provider: Tova Ireland MD History of Present Illness History of Present Illness Merritt Lima is a 69 year old male who presented to the emergency department with a left middle finger injury. Patient says last night he fell and hit his finger on a dresser. He has a laceration and deformity to distal end of left middle finger. Denies any other injury or symptoms. Ortho was consulted in the emergency department for further evaluation Review of Systems Narrative: Constitutional symptoms: Negative except as documented in HPI. Skin symptoms: Negative except as documented in HPI. Eye symptoms: Negative except as documented in HPI. ENMT symptoms: Negative except as documented in HPI. Respiratory symptoms: Negative except as documented in HPI. Cardiovascular symptoms: Negative except as documented in HPI. Gastrointestinal symptoms: Negative except as documented in HPI. Genitourinary symptoms: Negative except as documented in HPI. Musculoskeletal symptoms: Negative except as documented in HPI. Neurologic symptoms: Negative except as documented in HPI. Psychiatric symptoms: Negative except as documented in HPI. Endocrine symptoms: Negative except as documented in HPI. Medications/Allergies Home Medications ?Medication ?Instructions ?Recorded ?Confirmed ?Last Taken ?Type apixaban 5 mg tablet (Eliquis) 5 mg PO BID 05/07/2006/25/25 History nitroglycerin 0.4 mg sublingual 0.4 mg sublingual Q5M PRN Chest 05/07/20 06/25/25 Unknown History tablet (Nitrostat) Pain cetirizine 10 mg capsule (All Day 10 mg PO DAILY 11/2006/25/25 Unknown History Allergy (cetirizine)) cholecalciferol (vitamin D3) 50 100 mcg PO DAILY 08/0706/25/25 06/25/25 History mcg (2,000 unit) tablet (Vitamin D3) cyanocobalamin (vitamin B-12) 1,000 mcg IM Q30D 06/25/25 Unknown History 1,000 mcg/mL injection solution cephalexin 500 mg capsule 500 mg PO Q8H 10 days #30 ca ps 06/25/25 Unknown Rx hydrocodone 5 mg-acetaminophen 325 1 tab PO Q6H PRN pa in 5 days #20 06/25/25 Unknown Rx mg tablet tabs ondansetron 4 mg disintegrating 4 mg PO Q8H PRN nausea and 06/25/25 Unknown Rx tablet vomiting 3 days #9 tabs Allergies Allergy/AdvReac Type Severity Reaction Status Date / Time Iodinated Contrast Media Allergy Hives Verified 06/25/25 10:11 levofloxacin (From Levaquin) Allergy allergy is Verified 06/25/25 10:11 on pts med list from the mo PFSH Acute PFSH: Medical History (Updated 06/25/25 @ 12:45 by Allison Cuba MD) SOB (shortness of breath) Diabetes Alcohol abuse Major depression Hypertension Hyperlipidemia PTSD (post-traumatic stress disorder) Atrial fibrillation Tobacco abuse Surgical History H/O neck surgery Family History Father Cancer Lung disease TB Suicide Mother Dementia Lung disease TB Family/Other Diabetes Grandmother Stroke Denies family history of CAD (coronary artery disease) Clotting disorder Chronic kidney disease (CKD) Anesthesia complication Bleeding disorder Social History Smoking and tobacco/nicotine status: current every day tobacco/nicotine user Alcohol intake: current Substance/Drug Use: former Date of last use: unknown Vitals/I&O/Wt Last Vital Signs Temp 97.1 F L 06/25/25 10:03 Pulse 95 06/25/25 12:05 Resp 18 06/25/25 11:23 BP 154/80 06/25/25 12:05 Pulse Ox 98 06/25/25 12:05 O2 Del Method Room Air 06/25/25 11:23 Weight last 48 hrs Weight 180 lb Physical Exam Const: COMMON NORMALS: no acute distress and alert Resp: COMMON NORMALS: normal respiratory effort and No retractions Cardio: COMMON NORMALS: Peripheral pulses 2+ throughout PERIPHERAL PULSES: Peripheral pulses 2+ throughout Extremity: NARRATIVE EXTREMITY EXAM: Left hand-middle finger?sensation to distal finger intact. Tenderness to palpation over distal middle finger. Laceration distal end of finger noted with palpable deformity. Nail is intact. No erythema warmth or purulent drainage noted. No signs of any streaking up into hand or arm. Neuro: SENSORIUM/ORIENTATION: Yes alert Skin: GENERAL SKIN EXAM: dry skin Data Xray Ortho: Radiologist's impression: Patient: Merritt Lima Unit #: [id number] : 1955 Age/Sex: 69 / M ADM Date: 06/25/25 Loc: ER Room/Bed: Attending: Ordering Provider/Ordering MD: Allison Cuba MD Date of Service: 06/25/25 Procedure(s): XR hand LT min 3V* [id number] Accession Number(s): [id number] Report Number: [id number] PROCEDURE INFORMATION: Exam: XR Left Hand Exam date and time: 06/25/2025 10:17 AM Age: 69 years old Clinical indication: Injury or trauma; Fall; Blunt trauma (contusions or hematomas); Hand; Left; Additional info: Distal third digit injury TECHNIQUE: Imaging protocol: Radiologic exam of the left hand. Views: 3 or more views. COMPARISON: CR XR hand LT min 3V* [id number] 04/04/2021 4:07 PM FINDINGS: Bones/joints: Comminuted moderately displaced fracture through the base of the 3rd distal phalanx. No other osseous or joint abnormality. Soft tissues: Normal. XR/XR hand LT min 3V* [id number] IMPRESSION: Fracture of the 3rd finger. Dictated By: Rob Wang MD A&P Assessment and plan 1. Open finger fracture: Plan: Plan: - Left middle finger irrigation and debridement with possible nail bed repair and CRPP Patient is a 69-year-old male that came to the emergency department with a injury to left middle finger. Patient says last night he fell and hit the dresser causing injury. Ortho was consulted on patient. Patient's last meal was last night. X-rays show a comminuted displaced fracture at the base of the third distal phalanx. On exam patient has open finger fracture with laceration and deformity at end of finger. He has tenderness at distal end of finger. Patient has an open finger fracture and surgical intervention will be best treatment to repair fracture and to irrigate and debridement of open fracture to reduce risk of infection. I discussed the ins and outs of procedure with patient and postop course. Patient is good with proceeding forward with a left middle finger irrigation debridement with possible nailbed repair and CRPP PDMP PDMP Reviewed: Last Reviewed 06/25/25 15:19 EST by Harley Jacobs PA Coding Level of Care Code Acute Code for Chg Fwd Diagnoses Open finger fracture S62.609B
--- NOTE | 2025-06-25 13:58 | W.PM.OPSUD ---
Surgery/Procedure H&P Update DATE OF PROCEDURE: June 25, 2025 DATE H&P PERFORMED: 06/25/25 H&P UPDATE INFORMATION: I have reviewed H&P completed within last 30 days, I have examined patient prior to procedure and No changes to prior documentation PREOP DIAGNOSIS: Left middle finger traumatic fingertip crush injury with open distal phalan PRIMARY INDICATION FOR PROCEDURE: Left middle finger traumatic fingertip crush injury with open distal phalanx fracture and nailbed injury PLANNED PROCEDURE: Operation Date: 06/25/25 16:15 Proposed Procedures p Incision & Drainage Upper Extremity(Left) - DO abhi Smith Possible Percutaneous Pinning Digit Hand Percutaneous Pinning Finger(Left) - DO abhi Smith Excision Nail Digit Hand Excision Finger Nail Bed(Left) - Silas Jacobs DO
[2025-06-25] MEDS: fentaNYL 50 mcg/mL INJ 2mL IVP (15:18)
[2025-06-25] MEDS: ceFAZolin 2,000 MG in sodium chloride 0.9% (plus) 50 ML 100 MG IV (15:27)
[2025-06-25] MEDS: ROPivacaine 0.5% SDV 30 mL 150 MG (16:36)
--- NOTE | 2025-06-25 17:11 | W.PM.BPON ---
Date of Procedure: [June 25, 2025] Surgeon: [Dr. Jacobs DO] Through Freight Engineer(s): [Harley Jacobs PA-C] Procedure(s) performed: Left middle finger irrigation and debridement -size of I&D 2 cm x 1.5 cm x 1 cm nailbed repair Open reduction and internal fixation percutaneous pinning] Findings of the procedure(s): [Left middle finger distal phalanx displaced fracture nailbed laceration. procedure went well as planned] Estimated blood loss: [5 mL] Specimen(s) removed: [N/A] Post-operative diagnosis: [Left middle finger distal phalanx displaced fracture with nailbed laceration.]
--- NOTE | 2025-06-25 17:15 | P.OP_ITS ---
Operative Report Date of procedure: June 25, 2025 Pre-op diagnosis: Left middle finger traumatic fingertip crush injury with open distal phalanx fracture and nailbed injury Post-op diagnosis: same Procedure done: Left middle finger irrigation and debridement 2 cm x 1.5 cm x 1 cm Left middle finger nailbed repair Left middle finger distal phalanx open reduction internal fixation with percutaneous pinning Implants: 1 x 0.62 K wire 1x 0.45 K wire Surgeon: Silas Jacobs DO Banana Room Cutter: Harley Jacobs PA-C: JYOTI was necessary for assistance in this case with hand positioning to execute the procedure, assistance with fracture reduction and pinning fixation, assistance with nailbed repair retraction and protection of neurovascular structures as well as to assist with wound closure and dressing application. Anesthesia: Local Estimated blood loss: 5 mL 26 minutes IV fluids: 1000 mL Complications: None Findings: See operative report narrative Condition: stable Disposition: same day Brief History: Patient is 69-year-old with crush injury and open left middle finger distal phalanx fracture with nailbed injury. We talked about his treatment options in detail and through shared decision making patient like to proceed with surgical intervention for left middle finger irrigation debridement with possible nailbed repair and percutaneous pinning of distal phalanx. Patient understands Anzemet's procedure risk benefits complication alternative surgical nonsurgical treatment options. And understanding risk of surgery elects proceed with surgical invention all questions answered. Elected for local only anesthesia was seen in the preoperative holding area consent reviewed and signed with pat iesis. Procedure: Patient was seen evaluate in the preoperative holding area. Consent was reviewed and signed with patient. Correct digit/extremity was then subsequently marked. Patient was elected for local only anesthesia and patient was taken back to the operative suite. [facility] was kept on [facility] and armboard was applied to Left upper extremity. the Left upper extremity was then prepped and draped in standard orthopedic fashion. Final timeout performed. Patient received appropriate preoperative antibiotics. Patient underwent a left middle finger digital block under sterile aseptic technique to perform local only anesthesia. Once appropriate anesthetized proceeded with procedure. Finger turnicot was placed over the Left middle finger and started the insufflation of finger turnicot. This point in time I then subsequently evaluated Left Index finger patient's crush injury and open laceration at the base of the nail.? It was first was then thoroughly irrigated and they subsequently removed nail this allowed me full visualization of patient's complex laceration this had direct split transverse split/laceration through the sterile matrix and then through the base of the germinal matrix as well. This went directly down onto bone and the comminuted distal phalanx fracture was appreciated there was a devitalized and loose fracture fragments. I then brought in mini C arm and had thoroughly evaluation of the fracture fragment which had the fragments attached to the volar flexor tendon fragment as well as the distal extension of the extensor tendons attached to the dorsal fragment. The splint then intra-articular communication. At this point in time I then subsequent perform thorough irrigation removal of all of nonviable skin and subcutaneous tissue fascia and fragment of bone not attached to any tendinous portion. At this point in time once this was thoroughly irrigated this comprised of 2 cm x 1.5 cm x 1 cmand thoroughly irrigation performed debridement once this was in good clean condition for fixation I then proceeded with fixation. Given the fracture fragments and displacement I was able to manually reduce this under fluoroscopic imaging at this point in time I then subsequently advanced a 0.62 K wire in antegrade fashion at the mid substance of the distal phalanx bone of the fragment distally. This was ran out the fingertip and then I held the finger reduced and drilled this across the DIP joint holding reduction. At this point in time this allowed for good position and opposition of the nail matrix for repair as well as allowed for good position of the volar and dorsal fragments. This point in time the dorsal fragment was still had some displacement and subsequently placed a dorsal blocking pin into hold this reduction a piece into place. The volar fragment was in good position with mini C arm at this point I was satisfied with the percutaneous pinning of the distal phalanx. Once I was satisfied with this positioning I then extended the incision through the eponychial fold to further evaluate and allow positioning for my repair of the germinal and sterile matrix. At this point in time my assistant hall director held up the eponychial fold and then subsequently performed a nailbed repair with chromic suture. Once I was satisfied with this I did subsequently cut the excess pins and These with Jonas balls and then subsequently placed a sterile Coban at the tips of this to keep appropriate tension and opposition of the fracture fragments. At this point in time I then subsequently utilized the chromic suture to reapproximate the skin eponychial edges. At this point time tourniquet from the finger was then subsequently removed hemostasis was satisfactory thorough irrigation performed. I then subsequently placed Xeroform and triple antibiotic ointment over the nailbed and then placed this underneath the eponychial fold to prevent from an hearing down. I then subsequently dressed the rest of this with Xeroform 4 x 4's bulky soft dressing and a volar splint was then subsequently applied. Patient tolerated procedure well without issues or complications was awake and updated throughout the procedure and then subsequently taken to recovery in stable condition. Disposition: Patient taken recovery in stable condition,recovered well patient tolerated procedure without issue complication, given appropriate discharge instruction as well as pain medication will follow-up in the office in 2 weeks. Patient understands agrees to current plan. Questions answered
== END 2025-06-25 17:04 | disposition home or self-care (01) ==
PROVIDERS: Student in an Organized Health Care Education/Training Program; Emergency Provider Emergency Medicine; PCP Family Medicine
PROC: 0HTQXZZ Resection of Finger Nail, External Approach (ICD-10-PCS; CPT 11750; 2025-06-25 16:05)
DX: S62.633A Displaced fracture of distal phalanx of left middle finger, initial encounter for closed fracture (principal); W19.XXXA Unspecified fall, initial encounter; E78.5 Hyperlipidemia, unspecified; Z79.01 Long term (current) use of anticoagulants; E11.9 Type 2 diabetes mellitus without complications; I10 Essential (primary) hypertension; Z72.0 Tobacco use
CPT/HCPCS: 36415; 73120; 73130; 76000; 90471; 90715; 96361; 96365; 96375; 99285; C1713; J0690; J2270; J2405; J2795; J3010; J7030; J9999

== ENCOUNTER → 2025-07-09 13:25 | Outpatient (BNVA) | payer OTHER, SELFPAY | PROVIDERS: PCP Family Medicine; Visit Provider Physician Assistant | DX: Z98.890 Other specified postprocedural states (principal) | CPT/HCPCS: 73130 ==

== ENCOUNTER 2025-07-09 14:22 | Outpatient (CLI) | payer OTHER, SELFPAY | END 2025-07-09 14:23 | disposition home or self-care (01) | LOC: SOT 14:23 | PROVIDERS: PCP Family Medicine; Visit Provider Physician Assistant | DX: Z46.89 Encounter for fitting and adjustment of other specified devices (principal); S62.603B Fracture of unspecified phalanx of left middle finger, initial encounter for open fracture; W01.0XXA Fall on same level from slipping, tripping and stumbling without subsequent striking against object, initial encounter | CPT/HCPCS: 97760; 99024; L3808 ==